=== PATIENT | female | born 1950 | race Two or more races ===

== ENCOUNTER 2020-05-26 18:03 | Inpatient (IN) | payer BC, OTHER ==
[~2020-05-26] VITALS: Ht 160 cm; Wt 90.7 kg
[2020-05-26 18:57] LABS: Basophils # (auto) 0 10 ^3/uL (0-0.2); Basophils % (auto) 0.1 % (0.0-2.0); Eosinophils # (auto) 0 10 ^3/uL (0-0.8); Hematocrit 42.1 % (36.0-46.0); Hemoglobin 14.6 g/dL (12.2-16.2); Lymphocytes # (auto) 0.3 10 ^3/uL (0.4-5.4); Lymphocytes % (auto) 3.5 % (10.0-50.0); Mean Corpuscular Hemoglobin 31.7 pg (28.0-32.0); Mean Corpuscular Hgb Conc. 34.5 g/dL (32.0-36.0); Mean Corpuscular Volume 91.8 fL (80.0-100.0); Monocytes # (auto) 0.6 10 ^3/uL (0-1.3); Monocytes % (auto) 6.2 % (0.0-12.0); Neutrophils # (auto) 8.2 10 ^3/uL (1.6-8.6); Neutrophils % (auto) 90.2 % (37.0-80.0); Nucleated Red Blood Cells % 0.1 %; Platelet Count (auto) 275 10^3/uL (140-450); Red Blood Cells 4.59 10^6/uL (4.0-5.20); White Blood Cell 9.1 10^3/uL (4.4-10.8)
[2020-05-26 19:09] LABS: Albumin 2.8 g/dL (3.4-5.0); BUN/Creatinine Ratio 15.8; Calcium 8.2 mg/dL (8.5-10.1)
[2020-05-26 19:14] LABS: Bilirubin, Total 0.5 mg/dL (0.2-1.0); Total Protein 7.8 g/dL (6.4-8.2)
[2020-05-26] MEDS ORDERED: ALBUTEROL SULF 2.5 MG/0.5ML(0.5%) NEB SOLN NEB ONE (19:15)
[2020-05-26] MEDS ORDERED: IPRATROPIUM BROM 0.5 MG/2.5ML INH SOL NEB ONE (19:15)
[2020-05-26 19:30] VITALS: BP 130/79
[2020-05-26] MEDS ORDERED: levoFLOXacin 750MG 150 ML IV ONE (20:00)
[2020-05-26] MEDS ORDERED: LORazepam 2MG/ML-1ML VIAL IV ONE (22:00)
[2020-05-26 22:40] VITALS: BP 124/73
[2020-05-26] MEDS ORDERED: MORPHINE SULF INJ 2 MG/ML SYRINGE 1ML IV PRN (22:45)
[2020-05-26] MEDS ORDERED: ACETAMINOPHEN 325 MG TAB PO PRN (22:45)
[2020-05-26] MEDS ORDERED: NITROGLYCERIN 0.4 MG SL TAB SL PRN (22:45)
[2020-05-26 23:03] LABS: Lactate Dehydrogenase 848 U/L (84-246); Magnesium 3.1 mg/dL (1.6-2.6)
[2020-05-26 23:15] LABS: CRP High Sensitivity > 19.0 mg/dL (< 0.3)
[2020-05-27] VITALS (7 sets, daily range): BP systolic 113–140; BP diastolic 65–77
[2020-05-27] MEDS: DexAMETHasone SOD PHOS 10MG/1ML VIAL INJ IV SCH ×2 (00:15→10:00)
[2020-05-27] MEDS ORDERED: ENOXAPARIN SOD 40 MG/0.4 ML SYRINGE SC SCH ×2 (03:00→10:00)
[2020-05-27] MEDS: ALBUTEROL SULF HFA 90MCG INH 200DOSE IN SCH ×3 (06:00→22:26)
[2020-05-27 06:14] LABS: Basophils # (auto) 0 10 ^3/uL (0-0.2); Eosinophils # (auto) 0 10 ^3/uL (0-0.8); Hematocrit 40.2 % (36.0-46.0); Hemoglobin 13.8 g/dL (12.2-16.2); Lymphocytes # (auto) 0.3 10 ^3/uL (0.4-5.4); Lymphocytes % (auto) 3.7 % (10.0-50.0); Mean Corpuscular Hemoglobin 31.5 pg (28.0-32.0); Mean Corpuscular Hgb Conc. 34.4 g/dL (32.0-36.0); Mean Corpuscular Volume 91.8 fL (80.0-100.0); Monocytes # (auto) 0.4 10 ^3/uL (0-1.3); Monocytes % (auto) 4.1 % (0.0-12.0); Neutrophils # (auto) 8.3 10 ^3/uL (1.6-8.6); Neutrophils % (auto) 92.2 % (37.0-80.0); Platelet Count (auto) 273 10^3/uL (140-450); Red Blood Cells 4.38 10^6/uL (4.0-5.20); Red Cell Distribution Width 13.4 % (11.8-14.3)
[2020-05-27 06:23] LABS: Albumin 2.6 g/dL (3.4-5.0); BUN/Creatinine Ratio 21.7; Calcium 8.5 mg/dL (8.5-10.1); Potassium 4.5 mmol/L (3.5-5.1)
[2020-05-27 06:28] LABS: Bilirubin, Total 0.4 mg/dL (0.2-1.0); Total Protein 7.5 g/dL (6.4-8.2)
[2020-05-27] MEDS: ASCORBIC ACID 1,000 MG TAB PO SCH (10:00)
[2020-05-27] MEDS: FAMOTIDINE 20 MG TAB PO SCH (10:00)
[2020-05-27] MEDS: CHOLECALCIFEROL (VITD3) 2,000 UNIT CAP PO SCH (10:00)
[2020-05-27] MEDS: ZINC SULFATE 220mg CAP or TAB PO SCH (10:00)
[2020-05-27] MEDS: DOXYCYCLINE 100MG/250ML 250 ML IV SCH (10:00)
[2020-05-27] MEDS ORDERED: ASPirin 81 mg TAB PO SCH (10:00)
[2020-05-27] MEDS: BUDESONIDE (INHALATION) 180 MCG IH IN SCH ×2 (11:05→22:26)
[2020-05-27] MEDS ORDERED: FUROSEMIDE 40 MG/4 ML VIAL IV ONE (12:15)
[2020-05-27] MEDS ORDERED: cefTRIAXone 1GM/50ML D5W 50 ML IV ONE (12:15)
[2020-05-27] MEDS ORDERED: REMDESIVIR PER PHARMACY IV SCH (12:45)
--- NOTE | 2020-05-27 13:00 | NUR ---
RT NOTE: FIO2 DECREASED TO 70% FROM 100% PER DR. VOGEL. RN LAURE AWARE. POX 91%. WILL CONTINUE TO MONITOR.
--- NOTE | 2020-05-27 16:02 | NUR ---
RT NOTE: FIO2 INCREASED TO 90% DUE TO PT. POX 86%. RN LAURE KO. PT. POX ON 90% FIO2 IS 90%.
[2020-05-27] MEDS ORDERED: REMDESIVIR 200 MG in NS 210ml LOADING DOSE ADULT IV ONE (17:00)
[2020-05-28] MEDS: ATORVASTATIN 20 MG TAB PO SCH ×2 (00:22→22:00)
[2020-05-28] MEDS: DOXYCYCLINE 100MG/250ML 250 ML IV SCH ×3 (00:22→22:00)
[2020-05-28] MEDS: FAMOTIDINE 20 MG TAB PO SCH ×3 (00:22→22:00)
[2020-05-28] MEDS: ENOXAPARIN SOD 80 MG/0.8ML SYRINGE SC SCH ×3 (00:22→22:00)
[2020-05-28] MEDS: MORPHINE SULF INJ 2 MG/ML SYRINGE 1ML IV PRN ×3 (00:23→19:56)
[2020-05-28] MEDS: ONDANSETRON HCL 4 MG/2 ML VIAL IV PRN ×2 (00:23→18:36)
[2020-05-28 01:27] VITALS: BP 131/69
[2020-05-28 06:02] LABS: Basophils # (auto) 0 10 ^3/uL (0-0.2); Basophils % (auto) 0.1 % (0.0-2.0); Eosinophils # (auto) 0 10 ^3/uL (0-0.8); Hematocrit 38.9 % (36.0-46.0); Hemoglobin 13.3 g/dL (12.2-16.2); Lymphocytes # (auto) 0.4 10 ^3/uL (0.4-5.4); Mean Corpuscular Hemoglobin 31.4 pg (28.0-32.0); Mean Corpuscular Hgb Conc. 34.2 g/dL (32.0-36.0); Mean Corpuscular Volume 91.9 fL (80.0-100.0); Monocytes # (auto) 0.9 10 ^3/uL (0-1.3); Monocytes % (auto) 6.7 % (0.0-12.0); Neutrophils # (auto) 11.6 10 ^3/uL (1.6-8.6); Neutrophils % (auto) 90.2 % (37.0-80.0); Nucleated Red Blood Cells % 0.2 %; Platelet Count (auto) 334 10^3/uL (140-450); Red Blood Cells 4.23 10^6/uL (4.0-5.20); Red Cell Distribution Width 13.1 % (11.8-14.3); White Blood Cell 12.9 10^3/uL (4.4-10.8)
[2020-05-28 06:15] LABS: Potassium 4.2 mmol/L (3.5-5.1)
[2020-05-28 06:25] LABS: Albumin 2.4 g/dL (3.4-5.0); BUN/Creatinine Ratio 32.6; Bilirubin, Total 0.5 mg/dL (0.2-1.0); Calcium 8.4 mg/dL (8.5-10.1); Total Protein 7.2 g/dL (6.4-8.2)
[2020-05-28 07:46] VITALS: BP 124/77
[2020-05-28] MEDS: BUDESONIDE (INHALATION) 180 MCG IH IN SCH ×2 (07:46→19:07)
[2020-05-28] MEDS: ALBUTEROL SULF HFA 90MCG INH 200DOSE IN SCH (07:46)
[2020-05-28] MEDS: cefTRIAXone 1GM/50ML D5W 50 ML IV SCH (08:58)
[2020-05-28 10:00] VITALS: BP 135/60
[2020-05-28] MEDS ORDERED: ALBUTEROL SULF HFA 90MCG INH 200DOSE IN PRN (10:45)
[2020-05-28] MEDS: DexAMETHasone SOD PHOS 10MG/1ML VIAL INJ IV SCH (11:42)
[2020-05-28] MEDS: ASPirin 81 mg TAB PO SCH (11:46)
[2020-05-28] MEDS: FUROSEMIDE 40 MG/4 ML VIAL IV SCH (11:46)
[2020-05-28] MEDS: CHOLECALCIFEROL (VITD3) 2,000 UNIT CAP PO SCH (11:47)
[2020-05-28] MEDS: ZINC SULFATE 220mg CAP or TAB PO SCH (11:47)
[2020-05-28] MEDS: ASCORBIC ACID 1,000 MG TAB PO SCH (11:47)
[2020-05-28 12:30] VITALS: BP 139/74
[2020-05-28] MEDS: REMDESIVIR 100 MG in SODIUM CHL 0.9% 250 ML IV SCH (17:11)
[2020-05-28 19:07] VITALS: BP 130/75
[2020-05-28 22:27] VITALS: BP 139/67
[2020-05-29 02:42] VITALS: BP 128/56
[2020-05-29 06:25] VITALS: BP 118/59
[2020-05-29] MEDS: DexAMETHasone SOD PHOS 10MG/1ML VIAL INJ IV SCH (10:00)
[2020-05-29] MEDS: BUDESONIDE (INHALATION) 180 MCG IH IN SCH ×2 (10:00→19:35)
[2020-05-29] MEDS: cefTRIAXone 1GM/50ML D5W 50 ML IV SCH (10:09)
[2020-05-29 10:44] VITALS: BP 131/68
[2020-05-29 11:03] LABS: Albumin 2.3 g/dL (3.4-5.0); Calcium 8.4 mg/dL (8.5-10.1); Potassium 4.1 mmol/L (3.5-5.1)
[2020-05-29 11:06] LABS: Bilirubin, Total 0.5 mg/dL (0.2-1.0)
[2020-05-29] MEDS: FUROSEMIDE 40 MG/4 ML VIAL IV SCH (11:13)
[2020-05-29] MEDS: DOXYCYCLINE 100MG/250ML 250 ML IV SCH ×2 (11:13→22:11)
[2020-05-29] MEDS: ASCORBIC ACID 1,000 MG TAB PO SCH (11:14)
[2020-05-29] MEDS: FAMOTIDINE 20 MG TAB PO SCH ×2 (11:14→22:12)
[2020-05-29] MEDS: ASPirin 81 mg TAB PO SCH (11:14)
[2020-05-29] MEDS: ZINC SULFATE 220mg CAP or TAB PO SCH (11:14)
[2020-05-29] MEDS: CHOLECALCIFEROL (VITD3) 2,000 UNIT CAP PO SCH (11:15)
[2020-05-29] MEDS: ENOXAPARIN SOD 80 MG/0.8ML SYRINGE SC SCH ×2 (11:15→22:12)
[2020-05-29] MEDS: REMDESIVIR 100 MG in SODIUM CHL 0.9% 250 ML IV SCH (17:00)
[2020-05-29] MEDS ORDERED: SORE THROAT SPRAY 6OZ BOTTLE MT PRN (17:45)
[2020-05-29 18:36] VITALS: BP 138/73
[2020-05-29 21:58] VITALS: BP 128/67
[2020-05-29] MEDS: ATORVASTATIN 20 MG TAB PO SCH (22:11)
[2020-05-30 02:36] VITALS: BP 142/70
[2020-05-30] MEDS: LORazepam 2MG/ML-1ML VIAL IV PRN ×3 (02:43→22:58)
[2020-05-30 06:30] VITALS: BP 141/69
[2020-05-30] MEDS: BUDESONIDE (INHALATION) 180 MCG IH IN SCH (06:30)
[2020-05-30 06:41] LABS: Basophils # (auto) 0 10 ^3/uL (0-0.2); Eosinophils # (auto) 0 10 ^3/uL (0-0.8); Hematocrit 40.8 % (36.0-46.0); Hemoglobin 13.9 g/dL (12.2-16.2); Lymphocytes # (auto) 0.3 10 ^3/uL (0.4-5.4); Mean Corpuscular Hemoglobin 31.1 pg (28.0-32.0); Mean Corpuscular Volume 91.5 fL (80.0-100.0); Monocytes # (auto) 0.5 10 ^3/uL (0-1.3); Neutrophils # (auto) 10.8 10 ^3/uL (1.6-8.6); Nucleated Red Blood Cells % 0.2 %; Platelet Count (auto) 432 10^3/uL (140-450); Red Blood Cells 4.46 10^6/uL (4.0-5.20); Red Cell Distribution Width 13.3 % (11.8-14.3); White Blood Cell 11.6 10^3/uL (4.4-10.8)
[2020-05-30 07:01] LABS: Potassium 3.7 mmol/L (3.5-5.1)
[2020-05-30 07:08] LABS: Albumin 2.4 g/dL (3.4-5.0); Bilirubin, Total 0.7 mg/dL (0.2-1.0); Calcium 8.2 mg/dL (8.5-10.1)
[2020-05-30 09:52] VITALS: BP 176/116
[2020-05-30] MEDS ORDERED: LORazepam 2MG/ML-1ML VIAL IV ONE ×2 (10:00→11:00)
[2020-05-30] MEDS: FUROSEMIDE 40 MG/4 ML VIAL IV SCH (10:36)
[2020-05-30] MEDS: DexAMETHasone SOD PHOS 10MG/1ML VIAL INJ IV SCH (10:36)
[2020-05-30] MEDS: ZINC SULFATE 220mg CAP or TAB PO SCH (10:37)
[2020-05-30] MEDS: ENOXAPARIN SOD 80 MG/0.8ML SYRINGE SC SCH ×2 (10:37→22:21)
[2020-05-30] MEDS: ASPirin 81 mg TAB PO SCH (10:37)
[2020-05-30] MEDS: CHOLECALCIFEROL (VITD3) 2,000 UNIT CAP PO SCH (10:38)
[2020-05-30] MEDS: ASCORBIC ACID 1,000 MG TAB PO SCH (10:38)
[2020-05-30] MEDS: FAMOTIDINE 20 MG TAB PO SCH ×2 (10:38→22:00)
[2020-05-30] MEDS: levoFLOXacin 500 MG TAB PO SCH (10:54)
[2020-05-30] MEDS: ONDANSETRON HCL 4 MG/2 ML VIAL IV PRN (12:14)
[2020-05-30] MEDS: MORPHINE SULF INJ 2 MG/ML SYRINGE 1ML IV PRN (12:14)
[2020-05-30] MEDS ORDERED: ACETAMINOPHEN 650 MG RECT SUPP PR ONE (12:30)
[2020-05-30 14:00] VITALS: BP 104/49
[2020-05-30] MEDS: REMDESIVIR 100 MG in SODIUM CHL 0.9% 250 ML IV SCH (17:15)
[2020-05-30 18:30] VITALS: BP 111/62
[2020-05-30] MEDS: ATORVASTATIN 20 MG TAB PO SCH (22:00)
[2020-05-30 22:30] VITALS: BP 114/66
[2020-05-30] MEDS: ALBUTEROL SULF 2.5 MG/0.5ML(0.5%) NEB SOLN NEB SCH (22:30)
[2020-05-30] MEDS: BUDESONIDE (INHALATION) 0.5 MG/2 ML NEB NEB SCH (22:30)
[2020-05-31 02:10] VITALS: BP 118/68
[2020-05-31] MEDS: ONDANSETRON HCL 4 MG/2 ML VIAL IV PRN ×2 (03:18→18:27)
[2020-05-31] MEDS: MORPHINE SULF INJ 2 MG/ML SYRINGE 1ML IV PRN ×2 (03:18→18:27)
[2020-05-31 06:15] VITALS: BP 138/75
[2020-05-31] MEDS: ALBUTEROL SULF 2.5 MG/0.5ML(0.5%) NEB SOLN NEB SCH ×3 (06:15→20:45)
[2020-05-31] MEDS: BUDESONIDE (INHALATION) 0.5 MG/2 ML NEB NEB SCH ×2 (06:15→20:45)
[2020-05-31 08:52] LABS: Basophils # (auto) 0 10 ^3/uL (0-0.2); Eosinophils # (auto) 0 10 ^3/uL (0-0.8); Eosinophils % (auto) 0.2 % (0.0-7.0); Hemoglobin 13.8 g/dL (12.2-16.2); Lymphocytes # (auto) 0.3 10 ^3/uL (0.4-5.4); Red Cell Distribution Width 13.3 % (11.8-14.3); White Blood Cell 13.4 10^3/uL (4.4-10.8)
[2020-05-31 08:53] LABS: Basophils % (auto) 0.2 % (0.0-2.0); Hematocrit 42.1 % (36.0-46.0); Lymphocytes % (auto) 2.3 % (10.0-50.0); Mean Corpuscular Hemoglobin 30.6 pg (28.0-32.0); Mean Corpuscular Hgb Conc. 32.9 g/dL (32.0-36.0); Mean Corpuscular Volume 93.2 fL (80.0-100.0); Monocytes # (auto) 0.5 10 ^3/uL (0-1.3); Monocytes % (auto) 3.7 % (0.0-12.0); Neutrophils # (auto) 12.6 10 ^3/uL (1.6-8.6); Neutrophils % (auto) 93.6 % (37.0-80.0); Nucleated Red Blood Cells % 0.1 %; Platelet Count (auto) 481 10^3/uL (140-450); Red Blood Cells 4.52 10^6/uL (4.0-5.20)
[2020-05-31 09:08] LABS: Albumin 2.3 g/dL (3.4-5.0); Calcium 8.4 mg/dL (8.5-10.1); Potassium 3.7 mmol/L (3.5-5.1)
[2020-05-31 09:10] LABS: BUN/Creatinine Ratio 53.3
[2020-05-31 09:12] LABS: Bilirubin, Total 0.6 mg/dL (0.2-1.0); Total Protein 7.2 g/dL (6.4-8.2)
[2020-05-31] MEDS: DexAMETHasone SOD PHOS 10MG/1ML VIAL INJ IV SCH (09:48)
[2020-05-31] MEDS: ENOXAPARIN SOD 80 MG/0.8ML SYRINGE SC SCH ×2 (09:49→21:42)
[2020-05-31] MEDS: FUROSEMIDE 40 MG/4 ML VIAL IV SCH (09:49)
[2020-05-31 09:55] VITALS: BP 142/84
[2020-05-31] MEDS: FAMOTIDINE 20 MG TAB PO SCH ×2 (10:31→21:42)
[2020-05-31] MEDS: ASPirin 81 mg TAB PO SCH (10:31)
[2020-05-31] MEDS: ASCORBIC ACID 1,000 MG TAB PO SCH (10:31)
[2020-05-31] MEDS: levoFLOXacin 500 MG TAB PO SCH (10:31)
[2020-05-31] MEDS: ZINC SULFATE 220mg CAP or TAB PO SCH (10:31)
[2020-05-31] MEDS: CHOLECALCIFEROL (VITD3) 2,000 UNIT CAP PO SCH (10:32)
[2020-05-31] MEDS: LORazepam 2MG/ML-1ML VIAL IV PRN ×2 (12:37→21:54)
[2020-05-31 14:00] VITALS: BP 109/57
[2020-05-31] MEDS ORDERED: IOHEXOL 350 MG/ML 100ML IJ ONE (16:02)
[2020-05-31] MEDS: REMDESIVIR 100 MG in SODIUM CHL 0.9% 250 ML IV SCH (16:54)
[2020-05-31 18:00] VITALS: BP 144/71
[2020-05-31] MEDS: ATORVASTATIN 20 MG TAB PO SCH (21:42)
[2020-05-31 23:00] VITALS: BP 138/81
[2020-06-01 02:30] VITALS: BP 145/80
[2020-06-01] MEDS: LORazepam 2MG/ML-1ML VIAL IV PRN ×3 (04:52→19:47)
[2020-06-01 06:30] VITALS: BP 143/79
[2020-06-01] MEDS: BUDESONIDE (INHALATION) 0.5 MG/2 ML NEB NEB SCH ×2 (06:30→19:24)
[2020-06-01] MEDS: ALBUTEROL SULF 2.5 MG/0.5ML(0.5%) NEB SOLN NEB SCH ×3 (06:30→19:24)
[2020-06-01] MEDS ORDERED: LORazepam 2MG/ML-1ML VIAL IV ONE (07:45)
[2020-06-01] MEDS ORDERED: MORPHINE SULF INJ 2 MG/ML SYRINGE 1ML ONE (09:00)
[2020-06-01] MEDS: MORPHINE SULF INJ 2 MG/ML SYRINGE 1ML IV PRN ×3 (09:28→22:15)
[2020-06-01] MEDS: FUROSEMIDE 40 MG/4 ML VIAL IV SCH (09:33)
[2020-06-01] MEDS: DexAMETHasone SOD PHOS 10MG/1ML VIAL INJ IV SCH (09:33)
[2020-06-01] MEDS: ENOXAPARIN SOD 80 MG/0.8ML SYRINGE SC SCH ×2 (09:34→22:16)
[2020-06-01] MEDS: levoFLOXacin 500 MG TAB PO SCH (10:00)
[2020-06-01] MEDS: ASPirin 81 mg TAB PO SCH (10:00)
[2020-06-01] MEDS: CHOLECALCIFEROL (VITD3) 2,000 UNIT CAP PO SCH (10:00)
[2020-06-01] MEDS: ASCORBIC ACID 1,000 MG TAB PO SCH (10:00)
[2020-06-01] MEDS: ZINC SULFATE 220mg CAP or TAB PO SCH (10:00)
[2020-06-01] MEDS: FAMOTIDINE 20 MG TAB PO SCH ×2 (10:00→20:15)
[2020-06-01 10:10] VITALS: BP 141/77
[2020-06-01 14:00] VITALS: BP 133/71
[2020-06-01 19:24] VITALS: BP 151/84
[2020-06-01] MEDS: ATORVASTATIN 20 MG TAB PO SCH (20:15)
[2020-06-01] MEDS: ONDANSETRON HCL 4 MG/2 ML VIAL IV PRN (22:16)
[2020-06-01 22:38] VITALS: BP 119/67
[2020-06-02] VITALS (9 sets, daily range): BP systolic 132–150; BP diastolic 67–89
[2020-06-02] MEDS: MORPHINE SULF INJ 2 MG/ML SYRINGE 1ML IV PRN ×2 (02:27→20:15)
[2020-06-02] MEDS: ONDANSETRON HCL 4 MG/2 ML VIAL IV PRN ×2 (02:27→20:15)
[2020-06-02] MEDS: LORazepam 2MG/ML-1ML VIAL IV PRN (02:58)
[2020-06-02] MEDS: BUDESONIDE (INHALATION) 0.5 MG/2 ML NEB NEB SCH ×2 (06:07→22:23)
[2020-06-02] MEDS: ALBUTEROL SULF 2.5 MG/0.5ML(0.5%) NEB SOLN NEB SCH ×3 (06:07→22:23)
[2020-06-02 06:55] LABS: Basophils # (auto) 0 10 ^3/uL (0-0.2); Basophils % (auto) 0.1 % (0.0-2.0); Eosinophils # (auto) 0 10 ^3/uL (0-0.8)
[2020-06-02 06:58] LABS: Hemoglobin 15.4 g/dL (12.2-16.2); Lymphocytes # (auto) 0.4 10 ^3/uL (0.4-5.4); Lymphocytes % (auto) 3.1 % (10.0-50.0); Mean Corpuscular Hemoglobin 31.4 pg (28.0-32.0); Mean Corpuscular Hgb Conc. 33.6 g/dL (32.0-36.0); Mean Corpuscular Volume 93.6 fL (80.0-100.0); Monocytes % (auto) 8.1 % (0.0-12.0); Neutrophils # (auto) 10.6 10 ^3/uL (1.6-8.6); Neutrophils % (auto) 88.7 % (37.0-80.0); Nucleated Red Blood Cells % 0.3 %; Red Blood Cells 4.92 10^6/uL (4.0-5.20); Red Cell Distribution Width 13.3 % (11.8-14.3); White Blood Cell 11.9 10^3/uL (4.4-10.8)
[2020-06-02 07:05] LABS: BUN/Creatinine Ratio 73.3; Potassium 3.3 mmol/L (3.5-5.1)
[2020-06-02 07:16] LABS: Platelet Count (auto) 578 10^3/uL (140-450)
[2020-06-02] MEDS: ASPirin 81 mg TAB PO SCH (10:00)
[2020-06-02] MEDS: ASCORBIC ACID 1,000 MG TAB PO SCH (10:00)
[2020-06-02] MEDS: levoFLOXacin 500 MG TAB PO SCH (10:00)
[2020-06-02] MEDS: FAMOTIDINE 20 MG TAB PO SCH ×2 (10:00→22:00)
[2020-06-02] MEDS: CHOLECALCIFEROL (VITD3) 2,000 UNIT CAP PO SCH (10:00)
[2020-06-02] MEDS: ZINC SULFATE 220mg CAP or TAB PO SCH (10:00)
[2020-06-02] MEDS: DexAMETHasone SOD PHOS 10MG/1ML VIAL INJ IV SCH (10:14)
[2020-06-02] MEDS: ENOXAPARIN SOD 80 MG/0.8ML SYRINGE SC SCH ×2 (10:14→21:05)
[2020-06-02] MEDS: FUROSEMIDE 40 MG/4 ML VIAL IV SCH (10:14)
[2020-06-02] MEDS ORDERED: SOD CHL 0.45% 1,000 ML IV SCH (21:45)
[2020-06-02] MEDS: ATORVASTATIN 20 MG TAB PO SCH (22:00)
[2020-06-03] MEDS: ONDANSETRON HCL 4 MG/2 ML VIAL IV PRN ×2 (00:45→16:43)
[2020-06-03] MEDS: MORPHINE SULF INJ 2 MG/ML SYRINGE 1ML IV PRN ×4 (00:45→22:36)
[2020-06-03 02:24] VITALS: BP 119/74
[2020-06-03 06:19] LABS: Basophils # (auto) 0 10 ^3/uL (0-0.2); Eosinophils # (auto) 0 10 ^3/uL (0-0.8); Eosinophils % (auto) 0.1 % (0.0-7.0); Hemoglobin 15.4 g/dL (12.2-16.2); Lymphocytes # (auto) 0.6 10 ^3/uL (0.4-5.4); Mean Corpuscular Hemoglobin 30.6 pg (28.0-32.0); Monocytes # (auto) 1.4 10 ^3/uL (0-1.3); Monocytes % (auto) 10.5 % (0.0-12.0); Red Blood Cells 5.05 10^6/uL (4.0-5.20); Red Cell Distribution Width 13.5 % (11.8-14.3)
[2020-06-03 06:20] VITALS: BP 166/90
[2020-06-03 06:20] LABS: Basophils % (auto) 0.3 % (0.0-2.0); Hematocrit 47.8 % (36.0-46.0); Lymphocytes % (auto) 4.3 % (10.0-50.0); Mean Corpuscular Hgb Conc. 32.3 g/dL (32.0-36.0); Mean Corpuscular Volume 94.8 fL (80.0-100.0); Neutrophils % (auto) 84.8 % (37.0-80.0); Nucleated Red Blood Cells % 0.1 %; Platelet Count (auto) 521 10^3/uL (140-450)
[2020-06-03] MEDS: ALBUTEROL SULF 2.5 MG/0.5ML(0.5%) NEB SOLN NEB SCH ×3 (06:20→22:08)
[2020-06-03] MEDS: BUDESONIDE (INHALATION) 0.5 MG/2 ML NEB NEB SCH ×2 (06:20→22:08)
[2020-06-03 06:41] LABS: BUN/Creatinine Ratio 74.6; Calcium 8.5 mg/dL (8.5-10.1); Potassium 3.1 mmol/L (3.5-5.1)
[2020-06-03] MEDS: DexAMETHasone SOD PHOS 10MG/1ML VIAL INJ IV SCH (09:07)
[2020-06-03] MEDS: ASPirin 81 mg TAB PO SCH (09:08)
[2020-06-03] MEDS: FUROSEMIDE 40 MG/4 ML VIAL IV SCH (09:08)
[2020-06-03] MEDS: FAMOTIDINE 20 MG TAB PO SCH ×2 (09:09→21:39)
[2020-06-03] MEDS: levoFLOXacin 500 MG TAB PO SCH (09:09)
[2020-06-03] MEDS: ZINC SULFATE 220mg CAP or TAB PO SCH (09:09)
[2020-06-03] MEDS: CHOLECALCIFEROL (VITD3) 2,000 UNIT CAP PO SCH (09:09)
[2020-06-03] MEDS: ASCORBIC ACID 1,000 MG TAB PO SCH (09:09)
[2020-06-03] MEDS: ENOXAPARIN SOD 80 MG/0.8ML SYRINGE SC SCH ×2 (09:13→21:34)
[2020-06-03 09:53] VITALS: BP 155/85
[2020-06-03] MEDS: POTASSIUM CHL 20MEQ/100ML 100 ML IV SCH ×2 (10:45→12:45)
[2020-06-03] MEDS: D5W 5% 1,000 ML IV SCH ×2 (10:45→20:45)
[2020-06-03 15:05] VITALS: BP 151/81
--- NOTE | 2020-06-03 15:05 | NUR ---
Respiratory note: MED NEB TX HELD AT THIS TIME DUE TO INCREASED HR 127.
[2020-06-03] MEDS: ATORVASTATIN 20 MG TAB PO SCH (21:39)
[2020-06-03 22:09] VITALS: BP 159/116
[2020-06-04 01:48] VITALS: BP 162/77
[2020-06-04] MEDS: D5W 5% 1,000 ML IV SCH ×4 (05:38→20:40)
[2020-06-04 06:18] VITALS: BP 156/87
[2020-06-04] MEDS: BUDESONIDE (INHALATION) 0.5 MG/2 ML NEB NEB SCH ×2 (06:18→22:25)
[2020-06-04] MEDS: ALBUTEROL SULF 2.5 MG/0.5ML(0.5%) NEB SOLN NEB SCH ×3 (06:18→22:25)
--- NOTE | 2020-06-04 06:18 | NUR ---
Respiratory note: TITRATED FIO2 TO 90%
[2020-06-04] MEDS: MORPHINE SULF INJ 2 MG/ML SYRINGE 1ML IV PRN ×2 (08:56→21:30)
[2020-06-04 10:14] VITALS: BP 146/84
[2020-06-04] MEDS: DexAMETHasone SOD PHOS 10MG/1ML VIAL INJ IV SCH (10:20)
[2020-06-04] MEDS: ASPirin 81 mg TAB PO SCH (10:20)
[2020-06-04] MEDS: FAMOTIDINE 20 MG TAB PO SCH ×2 (10:20→22:00)
[2020-06-04] MEDS: ASCORBIC ACID 1,000 MG TAB PO SCH (10:20)
[2020-06-04] MEDS: ENOXAPARIN SOD 80 MG/0.8ML SYRINGE SC SCH (10:20)
[2020-06-04] MEDS: levoFLOXacin 500 MG TAB PO SCH (10:20)
[2020-06-04] MEDS: CHOLECALCIFEROL (VITD3) 2,000 UNIT CAP PO SCH (10:20)
[2020-06-04] MEDS: ZINC SULFATE 220mg CAP or TAB PO SCH (10:20)
--- NOTE | 2020-06-04 11:40 | NUR ---
Respiratory note: TITRATED FIO2 TO 80% POST ABG
[2020-06-04] MEDS ORDERED: ACETAMINOPHEN 650 MG RECT SUPP PR ONE (12:13)
[2020-06-04 12:46] LABS: Basophils # (auto) 0.1 10 ^3/uL (0-0.2); Basophils % (auto) 0.3 % (0.0-2.0); Eosinophils # (auto) 0 10 ^3/uL (0-0.8); Eosinophils % (auto) 0.2 % (0.0-7.0); Hematocrit 47.4 % (36.0-46.0); Hemoglobin 15.7 g/dL (12.2-16.2); Lymphocytes # (auto) 0.4 10 ^3/uL (0.4-5.4); Lymphocytes % (auto) 2.3 % (10.0-50.0); Mean Corpuscular Hemoglobin 31.3 pg (28.0-32.0); Mean Corpuscular Hgb Conc. 33.1 g/dL (32.0-36.0); Mean Corpuscular Volume 94.7 fL (80.0-100.0); Monocytes # (auto) 1.1 10 ^3/uL (0-1.3); Neutrophils # (auto) 14.6 10 ^3/uL (1.6-8.6); Neutrophils % (auto) 90.2 % (37.0-80.0); Nucleated Red Blood Cells % 0.1 %; Platelet Count (auto) 411 10^3/uL (140-450); Red Cell Distribution Width 13.1 % (11.8-14.3); White Blood Cell 16.1 10^3/uL (4.4-10.8)
[2020-06-04 13:19] LABS: BUN/Creatinine Ratio 53.7; Calcium 8.4 mg/dL (8.5-10.1); Potassium 3.4 mmol/L (3.5-5.1)
[2020-06-04 14:11] VITALS: BP 138/72
--- NOTE | 2020-06-04 14:11 | NUR ---
Respiratory note: TITRATED FIO2 TO 75%
[2020-06-04 18:25] VITALS: BP 149/92
[2020-06-04] MEDS: MEROPENEM 1GM IVPB 100 ML IV SCH (20:37)
[2020-06-04] MEDS: ONDANSETRON HCL 4 MG/2 ML VIAL IV PRN (21:30)
[2020-06-04] MEDS: ATORVASTATIN 20 MG TAB PO SCH (22:00)
[2020-06-04 22:25] VITALS: BP 138/78
[2020-06-04] MEDS: LINEZOLID 600MG/300ML 300 ML IV SCH (22:36)
[2020-06-05] MEDS: MORPHINE SULF INJ 2 MG/ML SYRINGE 1ML IV PRN ×4 (01:48→19:12)
[2020-06-05 02:43] VITALS: BP 154/76
[2020-06-05] MEDS: MEROPENEM 1GM IVPB 100 ML IV SCH ×3 (03:15→19:15)
[2020-06-05] MEDS: D5W 5% 1,000 ML IV SCH ×5 (03:20→23:25)
[2020-06-05 05:47] VITALS: BP 155/78
[2020-06-05] MEDS: ALBUTEROL SULF 2.5 MG/0.5ML(0.5%) NEB SOLN NEB SCH ×3 (05:47→21:53)
[2020-06-05] MEDS: BUDESONIDE (INHALATION) 0.5 MG/2 ML NEB NEB SCH ×2 (05:48→21:53)
[2020-06-05 06:33] LABS: Basophils # (auto) 0 10 ^3/uL (0-0.2); Basophils % (auto) 0.1 % (0.0-2.0); Eosinophils # (auto) 0 10 ^3/uL (0-0.8); Hematocrit 46.4 % (36.0-46.0); Hemoglobin 14.8 g/dL (12.2-16.2); Lymphocytes # (auto) 0.4 10 ^3/uL (0.4-5.4); Lymphocytes % (auto) 3.7 % (10.0-50.0); Mean Corpuscular Hemoglobin 30.6 pg (28.0-32.0); Mean Corpuscular Hgb Conc. 31.8 g/dL (32.0-36.0); Mean Corpuscular Volume 96.1 fL (80.0-100.0); Monocytes # (auto) 1.1 10 ^3/uL (0-1.3); Monocytes % (auto) 9.3 % (0.0-12.0); Neutrophils # (auto) 10.4 10 ^3/uL (1.6-8.6); Neutrophils % (auto) 86.9 % (37.0-80.0); Nucleated Red Blood Cells % 0.1 %; Platelet Count (auto) 317 10^3/uL (140-450); Red Blood Cells 4.83 10^6/uL (4.0-5.20); Red Cell Distribution Width 13.7 % (11.8-14.3)
[2020-06-05 06:44] LABS: INR 1.28 (0.9-1.15)
[2020-06-05 06:45] LABS: Potassium 3.1 mmol/L (3.5-5.1)
[2020-06-05 06:54] LABS: BUN/Creatinine Ratio 53.3; Calcium 8.1 mg/dL (8.5-10.1)
[2020-06-05] MEDS: ASCORBIC ACID 1,000 MG TAB PO SCH (10:00)
[2020-06-05] MEDS: CHOLECALCIFEROL (VITD3) 2,000 UNIT CAP PO SCH (10:00)
[2020-06-05] MEDS: FAMOTIDINE 20 MG TAB PO SCH ×2 (10:00→22:00)
[2020-06-05] MEDS: ZINC SULFATE 220mg CAP or TAB PO SCH (10:00)
[2020-06-05 11:13] VITALS: BP 144/69
[2020-06-05] MEDS: LINEZOLID 600MG/300ML 300 ML IV SCH ×2 (11:30→22:00)
[2020-06-05] MEDS ORDERED: TPN PER PHARMACY 0 ML IV SCH (12:15)
[2020-06-05 14:30] VITALS: BP 148/64
[2020-06-05] MEDS: POTASSIUM CHL 20MEQ/100ML 100 ML IV SCH ×2 (14:30→17:25)
[2020-06-05] MEDS ORDERED: POTASSIUM CHL 20MEQ/100ML 100 ML IV ONE (17:24)
[2020-06-05 18:20] VITALS: BP 167/89
[2020-06-05] MEDS: AMINO ACID INFUSION IN D10W 1,000 ML IV NR (20:00)
[2020-06-05 21:20] VITALS: BP 148/78
[2020-06-05] MEDS: ATORVASTATIN 20 MG TAB PO SCH (22:00)
[2020-06-06] MEDS ORDERED: DEXTROSE (50%) 50ML SYRG IV SCH
[2020-06-06] MEDS: InsuLIN REG 1unit/0.01ml Soln (100units/ml) SC SCH ×4 (00:08→17:36)
[2020-06-06] MEDS: ACCU-CHEK COMFORT CURVE STRIP VI SCH ×4 (00:09→17:36)
[2020-06-06] MEDS: MEROPENEM 1GM IVPB 100 ML IV SCH ×3 (03:15→19:15)
[2020-06-06 03:28] VITALS: BP 153/64
[2020-06-06] MEDS: D5W 5% 1,000 ML IV SCH ×4 (05:54→20:00)
[2020-06-06] MEDS: ALBUTEROL SULF 2.5 MG/0.5ML(0.5%) NEB SOLN NEB SCH ×2 (06:00→19:01)
[2020-06-06 07:24] LABS: Potassium 3.4 mmol/L (3.5-5.1)
[2020-06-06 07:45] VITALS: BP 157/79
[2020-06-06 07:51] LABS: BUN/Creatinine Ratio 47.7; Bilirubin, Total 0.6 mg/dL (0.2-1.0); Calcium 7.8 mg/dL (8.5-10.1); Magnesium 2.9 mg/dL (1.6-2.6); Phosphorus 1.3 mg/dL (2.5-4.90); Pre Albumin 10.7 mg/dL (20.0-40.0); Total Protein 5.8 g/dL (6.4-8.2)
[2020-06-06] MEDS: ACETAMINOPHEN 650 MG RECT SUPP PR PRN (08:14)
[2020-06-06] MEDS: LINEZOLID 600MG/300ML 300 ML IV SCH ×2 (10:00→22:00)
[2020-06-06] MEDS: CHOLECALCIFEROL (VITD3) 2,000 UNIT CAP PO SCH (10:00)
[2020-06-06] MEDS: BUDESONIDE (INHALATION) 0.5 MG/2 ML NEB NEB SCH ×2 (10:00→19:01)
[2020-06-06] MEDS: FAMOTIDINE 20 MG TAB PO SCH ×2 (10:00→22:00)
[2020-06-06] MEDS: ASCORBIC ACID 1,000 MG TAB PO SCH (10:00)
[2020-06-06] MEDS: ZINC SULFATE 220mg CAP or TAB PO SCH (10:00)
[2020-06-06] MEDS ORDERED: POTASSIUM PHOSPHATE 26.4 MEQ in SODIUM CHL 0.9% 100 ML IV ONE (11:00)
--- NOTE | 2020-06-06 15:29 | NUR ---
Nutrition Assessment/Consult Notes Please refer to link for full assessment notes. Est Energy needs: 1018-0181 kcals (20-23 kcal/kgBW) Est Protein needs: 74-81 gms/day (1.0-1.1 gm/kgBW) Will continue to monitor and reassess prn. Addendum: 06/06/20 at [address] Amended: Links added.
[2020-06-06] MEDS ORDERED: ENOXAPARIN SOD 40 MG/0.4 ML SYRINGE SC ONE (18:15)
[2020-06-06 19:01] VITALS: BP 125/64
[2020-06-06] MEDS: AMINO ACID INFUSION IN D10W 1,000 ML IV NR (19:49)
[2020-06-06] MEDS ORDERED: PPN PER PHARMACY IV NR ×7 (20:00)
[2020-06-06] MEDS: ATORVASTATIN 20 MG TAB PO SCH (22:00)
[2020-06-07] MEDS: InsuLIN REG 1unit/0.01ml Soln (100units/ml) SC SCH ×5 (00:19→21:24)
[2020-06-07] MEDS: ACCU-CHEK COMFORT CURVE STRIP VI SCH ×5 (00:19→21:24)
[2020-06-07 01:55] VITALS: BP 123/57
[2020-06-07] MEDS: D5W 5% 1,000 ML IV SCH ×4 (02:40→21:18)
[2020-06-07] MEDS: MEROPENEM 1GM IVPB 100 ML IV SCH ×3 (03:15→17:00)
[2020-06-07] MEDS: ALBUTEROL SULF 2.5 MG/0.5ML(0.5%) NEB SOLN NEB SCH ×3 (06:15→23:09)
[2020-06-07] MEDS: BUDESONIDE (INHALATION) 0.5 MG/2 ML NEB NEB SCH ×2 (06:15→23:09)
[2020-06-07 07:13] LABS: Potassium 3.1 mmol/L (3.5-5.1)
[2020-06-07 07:28] LABS: Albumin 1.9 g/dL (3.4-5.0); BUN/Creatinine Ratio 65.6; Bilirubin, Total 0.5 mg/dL (0.2-1.0); Calcium 7.7 mg/dL (8.5-10.1); Magnesium 2.8 mg/dL (1.6-2.6); Phosphorus 1.8 mg/dL (2.5-4.90); Total Protein 5.5 g/dL (6.4-8.2)
[2020-06-07] MEDS ORDERED: POTASSIUM CHLORIDE 40 MEQ, LIDOCAINE 1% (LOCAL ANESTH.) 4 ML in SODIUM CHL 0.9% 250 ML IV ONE (07:45)
[2020-06-07] MEDS: LINEZOLID 600MG/300ML 300 ML IV SCH ×2 (09:25→21:18)
[2020-06-07] MEDS: FAMOTIDINE 20 MG TAB PO SCH ×2 (09:26→21:18)
[2020-06-07] MEDS: ZINC SULFATE 220mg CAP or TAB PO SCH (09:26)
[2020-06-07] MEDS: ASCORBIC ACID 1,000 MG TAB PO SCH (09:26)
[2020-06-07] MEDS: ENOXAPARIN SOD 40 MG/0.4 ML SYRINGE SC SCH (09:26)
[2020-06-07] MEDS: CHOLECALCIFEROL (VITD3) 2,000 UNIT CAP PO SCH (09:31)
[2020-06-07 10:45] VITALS: BP 128/62
[2020-06-07] MEDS ORDERED: POTASSIUM PHOSPHATE 22 MEQ in SODIUM CHL 0.9% 100 ML IV ONE (13:30)
[2020-06-07 13:48] VITALS: BP 136/66
--- NOTE | 2020-06-07 18:52 | NUR ---
PT WAS TAKEN OFF BIPAP AND PLACED ON 15L NRB. HR 91 RR 90 RR30. PT IS TOLERATING WELL WITH NO ACUTE DISTRESS NOTED. WILL CONTINUE TO MONITOR.
[2020-06-07] MEDS ORDERED: PPN PER PHARMACY IV NR ×8 (20:00)
[2020-06-07] MEDS: ATORVASTATIN 20 MG TAB PO SCH (21:18)
[2020-06-08] MEDS: MEROPENEM 1GM IVPB 100 ML IV SCH ×3 (03:01→20:19)
[2020-06-08] MEDS: InsuLIN REG 1unit/0.01ml Soln (100units/ml) SC SCH ×4 (06:00→23:47)
[2020-06-08] MEDS: ACCU-CHEK COMFORT CURVE STRIP VI SCH ×4 (06:00→23:48)
[2020-06-08] MEDS: D5W 5% 1,000 ML IV SCH ×4 (06:43→20:19)
[2020-06-08 06:46] VITALS: BP 151/71
[2020-06-08] MEDS: ALBUTEROL SULF 2.5 MG/0.5ML(0.5%) NEB SOLN NEB SCH ×3 (06:46→22:00)
[2020-06-08] MEDS: BUDESONIDE (INHALATION) 0.5 MG/2 ML NEB NEB SCH ×2 (06:46→22:00)
[2020-06-08 09:41] LABS: Basophils # (auto) 0 10 ^3/uL (0-0.2); Basophils % (auto) 0.2 % (0.0-2.0); Eosinophils # (auto) 0.2 10 ^3/uL (0-0.8); Eosinophils % (auto) 1.3 % (0.0-7.0); Hematocrit 33.5 % (36.0-46.0); Hemoglobin 11.2 g/dL (12.2-16.2); Lymphocytes # (auto) 0.5 10 ^3/uL (0.4-5.4); Lymphocytes % (auto) 3.6 % (10.0-50.0); Mean Corpuscular Hgb Conc. 33.3 g/dL (32.0-36.0); Mean Corpuscular Volume 93.4 fL (80.0-100.0); Monocytes # (auto) 0.5 10 ^3/uL (0-1.3); Monocytes % (auto) 3.7 % (0.0-12.0); Neutrophils # (auto) 12.3 10 ^3/uL (1.6-8.6); Neutrophils % (auto) 91.2 % (37.0-80.0); Nucleated Red Blood Cells % 0.1 %; Platelet Count (auto) 126 10^3/uL (140-450); Red Blood Cells 3.59 10^6/uL (4.0-5.20); Red Cell Distribution Width 13.9 % (11.8-14.3); White Blood Cell 13.5 10^3/uL (4.4-10.8)
[2020-06-08] MEDS: LINEZOLID 600MG/300ML 300 ML IV SCH ×2 (09:50→13:00)
[2020-06-08 10:01] LABS: Albumin 1.7 g/dL (3.4-5.0); Calcium 7.6 mg/dL (8.5-10.1); Magnesium 2.5 mg/dL (1.6-2.6)
[2020-06-08 10:05] LABS: BUN/Creatinine Ratio 46.2; Bilirubin, Total 0.6 mg/dL (0.2-1.0); Phosphorus 1.5 mg/dL (2.5-4.90); Total Protein 5.4 g/dL (6.4-8.2)
[2020-06-08] MEDS: ZINC SULFATE 220mg CAP or TAB PO SCH (10:19)
[2020-06-08] MEDS: FAMOTIDINE 20 MG TAB PO SCH ×2 (10:19→22:57)
[2020-06-08] MEDS: ENOXAPARIN SOD 40 MG/0.4 ML SYRINGE SC SCH (10:19)
[2020-06-08] MEDS: ASCORBIC ACID 1,000 MG TAB PO SCH (10:19)
[2020-06-08] MEDS: CHOLECALCIFEROL (VITD3) 2,000 UNIT CAP PO SCH (10:19)
[2020-06-08] MEDS ORDERED: POTASSIUM PHOSPHATE 44 MEQ in D5W 5% 250 ML IV ONE (14:00)
[2020-06-08 18:00] VITALS: BP 136/61
[2020-06-08] MEDS: LORazepam 2MG/ML-1ML VIAL IV PRN (19:44)
[2020-06-08] MEDS ORDERED: PPN PER PHARMACY IV NR ×9 (20:00)
[2020-06-08 22:05] VITALS: BP 138/62
[2020-06-08] MEDS: ATORVASTATIN 20 MG TAB PO SCH (22:57)
[2020-06-08] MEDS: POTASSIUM CHL 20MEQ/100ML 100 ML IV SCH (23:15)
[2020-06-09] MEDS: ACETAMINOPHEN 650 MG RECT SUPP PR PRN ×3 (00:37→20:30)
[2020-06-09] MEDS: MORPHINE SULF INJ 2 MG/ML SYRINGE 1ML IV PRN ×4 (00:48→20:23)
[2020-06-09] MEDS: POTASSIUM CHL 20MEQ/100ML 100 ML IV SCH ×2 (01:00→01:03)
[2020-06-09 02:15] VITALS: BP 151/60
[2020-06-09] MEDS: MEROPENEM 1GM IVPB 100 ML IV SCH ×3 (03:01→17:37)
[2020-06-09] MEDS: LINEZOLID 600MG/300ML 300 ML IV SCH ×2 (03:01→13:22)
[2020-06-09] MEDS: LORazepam 2MG/ML-1ML VIAL IV PRN ×2 (05:48→23:10)
[2020-06-09 06:00] VITALS: BP 139/57
[2020-06-09] MEDS: InsuLIN REG 1unit/0.01ml Soln (100units/ml) SC SCH ×3 (06:00→17:56)
[2020-06-09] MEDS: BUDESONIDE (INHALATION) 0.5 MG/2 ML NEB NEB SCH ×2 (06:11→20:03)
[2020-06-09] MEDS: ALBUTEROL SULF 2.5 MG/0.5ML(0.5%) NEB SOLN NEB SCH ×3 (06:11→20:03)
[2020-06-09 06:13] LABS: Basophils # (auto) 0.1 10 ^3/uL (0-0.2); Basophils % (auto) 0.5 % (0.0-2.0); Eosinophils # (auto) 0.2 10 ^3/uL (0-0.8); Eosinophils % (auto) 1.4 % (0.0-7.0); Hematocrit 36.9 % (36.0-46.0); Hemoglobin 12.3 g/dL (12.2-16.2); Lymphocytes # (auto) 0.5 10 ^3/uL (0.4-5.4); Lymphocytes % (auto) 3.6 % (10.0-50.0); Mean Corpuscular Hemoglobin 31.1 pg (28.0-32.0); Mean Corpuscular Hgb Conc. 33.4 g/dL (32.0-36.0); Mean Corpuscular Volume 93.1 fL (80.0-100.0); Monocytes # (auto) 0.6 10 ^3/uL (0-1.3); Monocytes % (auto) 4.6 % (0.0-12.0); Neutrophils # (auto) 11.7 10 ^3/uL (1.6-8.6); Neutrophils % (auto) 89.9 % (37.0-80.0); Nucleated Red Blood Cells % 0.1 %; Platelet Count (auto) 142 10^3/uL (140-450); Red Blood Cells 3.96 10^6/uL (4.0-5.20); Red Cell Distribution Width 13.6 % (11.8-14.3)
[2020-06-09] MEDS: ACCU-CHEK COMFORT CURVE STRIP VI SCH ×3 (06:13→17:18)
[2020-06-09] MEDS: D5W 5% 1,000 ML IV SCH ×2 (06:13→16:03)
[2020-06-09 06:19] LABS: Albumin 1.8 g/dL (3.4-5.0); Calcium 7.8 mg/dL (8.5-10.1); Magnesium 2.6 mg/dL (1.6-2.6); Potassium 3.6 mmol/L (3.5-5.1)
[2020-06-09 06:23] LABS: BUN/Creatinine Ratio 35.7; Bilirubin, Total 0.5 mg/dL (0.2-1.0); Total Protein 6.1 g/dL (6.4-8.2)
[2020-06-09] MEDS: FAMOTIDINE 20 MG TAB PO SCH ×2 (10:00→21:29)
[2020-06-09] MEDS: ZINC SULFATE 220mg CAP or TAB PO SCH (10:00)
[2020-06-09] MEDS: ASCORBIC ACID 1,000 MG TAB PO SCH (10:00)
[2020-06-09] MEDS: CHOLECALCIFEROL (VITD3) 2,000 UNIT CAP PO SCH (10:00)
[2020-06-09] MEDS: ENOXAPARIN SOD 40 MG/0.4 ML SYRINGE SC SCH (10:00)
[2020-06-09] MEDS ORDERED: POTASSIUM PHOSP 22MEQ(15MMOLE) in NS 100 ML IV ONE (11:00)
--- NOTE | 2020-06-09 12:54 | NUR ---
Nutrition Followup Notes Wt: 73.4 kg Pt continues to be in ER, little confused per records. pt is currently on cardiac diet with no PO recorded yet per RN doc along with PN support @ 64 ml/hr providing 956 kcals and 70 gm proteins 676 NCP Est Energy needs: 0767-1603 kcals (20-23 kcal/kgBW), Est Protein needs: 74-81 gms/day (1.0-1.1 gm/kgBW). Will continue to monitor and reassess prn. LABS: GLU 117 H ALB 1.8 L CA 7.8 L GI: Pt had 1 BM 06/07 per RN doc BS: No BS score. Refer to wound assessment report for further details PES: 1) Increased nutrient needs aeb pt is with no PO intake, scheduled to receive TPN r/t pt's poor appetite 2) Overweight aeb BMI of 28.7 kg/m2 r/t energy intake in excess of energy needs 3) Altered nutrition related lab values aeb hypernatremia, hypokalemia, elev RFT, hyperglycemia, hypoalbuminemia r/t current medical condition Comments: Will continue to monitor PO status, PN tolerance, skin status, pertinent labs and weight trends. Will f/u in 2-3 days Rec: 1) advance PN support to meet > 75% of needs if PO continues to be low. 2) continue assistance with meals. 3) Continue current plan of care
[2020-06-09 13:18] VITALS: BP 146/58
[2020-06-09] MEDS ORDERED: PPN PER PHARMACY IV NR ×8 (20:00)
[2020-06-09] MEDS ORDERED: D5W 5% 1,000 ML IV SCH (20:00)
[2020-06-09 20:03] VITALS: BP 197/72
[2020-06-09] MEDS: ONDANSETRON HCL 4 MG/2 ML VIAL IV PRN (20:23)
[2020-06-09] MEDS: ATORVASTATIN 20 MG TAB PO SCH (21:28)
[2020-06-09 22:20] VITALS: BP 137/54
[2020-06-10] VITALS (11 sets, daily range): BP systolic 81–122; BP diastolic 42–63
[2020-06-10] MEDS: LINEZOLID 600MG/300ML 300 ML IV SCH ×2 (01:00→16:00)
[2020-06-10] MEDS: MEROPENEM 1GM IVPB 100 ML IV SCH ×3 (03:15→19:15)
[2020-06-10] MEDS: ACCU-CHEK COMFORT CURVE STRIP VI SCH ×4 (06:00→18:35)
[2020-06-10] MEDS: InsuLIN REG 1unit/0.01ml Soln (100units/ml) SC SCH ×4 (06:00→18:38)
[2020-06-10] MEDS: BUDESONIDE (INHALATION) 0.5 MG/2 ML NEB NEB SCH ×2 (06:17→22:20)
[2020-06-10] MEDS: ALBUTEROL SULF 2.5 MG/0.5ML(0.5%) NEB SOLN NEB SCH ×2 (06:17→22:20)
[2020-06-10] MEDS ORDERED: SUCCINYLCHOLINE CHLORIDE 20 MG/ML 10ML VIAL IV ONE (07:27)
[2020-06-10] MEDS ORDERED: ETOMIDATE (2MG/ML) 20ML VIAL IV ONE (07:27)
[2020-06-10 07:37] LABS: Basophils # (auto) 0.1 10 ^3/uL (0-0.2); Basophils % (auto) 0.6 % (0.0-2.0); Eosinophils # (auto) 0.2 10 ^3/uL (0-0.8); Eosinophils % (auto) 2.4 % (0.0-7.0); Hematocrit 36.1 % (36.0-46.0); Hemoglobin 11.9 g/dL (12.2-16.2); Lymphocytes # (auto) 0.4 10 ^3/uL (0.4-5.4); Lymphocytes % (auto) 4.2 % (10.0-50.0); Mean Corpuscular Hemoglobin 31.1 pg (28.0-32.0); Mean Corpuscular Volume 94.2 fL (80.0-100.0); Monocytes # (auto) 0.5 10 ^3/uL (0-1.3); Monocytes % (auto) 5.7 % (0.0-12.0); Neutrophils # (auto) 7.8 10 ^3/uL (1.6-8.6); Neutrophils % (auto) 87.1 % (37.0-80.0); Platelet Count (auto) 152 10^3/uL (140-450); Red Blood Cells 3.84 10^6/uL (4.0-5.20); Red Cell Distribution Width 13.6 % (11.8-14.3); White Blood Cell 8.9 10^3/uL (4.4-10.8)
[2020-06-10] MEDS ORDERED: MIDAZOLAM DRIP 50 mg/50mL 50 ML IV ONE (08:07)
[2020-06-10 08:08] LABS: Potassium 3.4 mmol/L (3.5-5.1)
[2020-06-10 08:20] LABS: Albumin 1.6 g/dL (3.4-5.0); BUN/Creatinine Ratio 33.3; Bilirubin, Total 0.3 mg/dL (0.2-1.0); Calcium 7.8 mg/dL (8.5-10.1); Magnesium 2.6 mg/dL (1.6-2.6); Phosphorus 1.8 mg/dL (2.5-4.90)
[2020-06-10] MEDS: fentaNYL Drip 2500mCg/250mlNS 250 ML IV SCH (09:15)
[2020-06-10] MEDS ORDERED: SODIUM CHLORIDE 0.9% 500 ML IV ONE (09:15)
[2020-06-10] MEDS: ASCORBIC ACID 1,000 MG TAB PO SCH (10:00)
[2020-06-10] MEDS: ZINC SULFATE 220mg CAP or TAB PO SCH (10:00)
[2020-06-10] MEDS: FAMOTIDINE 20 MG TAB PO SCH ×2 (10:00→22:00)
[2020-06-10] MEDS: CHOLECALCIFEROL (VITD3) 2,000 UNIT CAP PO SCH (10:00)
[2020-06-10] MEDS: NOREPINEPHRINE 8 MG/250ML KIT 250 ML IV SCH (10:10)
[2020-06-10] MEDS ORDERED: POTASSIUM PHOSPHATE 26.4 MEQ in SODIUM CHL 0.9% 100 ML IV ONE (11:30)
[2020-06-10] MEDS ORDERED: SODIUM CHLORIDE 0.9% 1,000 ML IV SCH (12:15)
[2020-06-10] MEDS: ACETAMINOPHEN 650 MG RECT SUPP PR PRN ×2 (12:43→18:48)
[2020-06-10] MEDS: ENOXAPARIN SOD 40 MG/0.4 ML SYRINGE SC SCH (13:00)
[2020-06-10] MEDS: ATRACURIUM BESYLATE 1,000 MG in D5W 5% 150 ML IV SCH (15:30)
[2020-06-10 17:45] LABS: INR 1.16 (0.9-1.15); Partial Thromboplastin Time 29.1 sec (23.0-31.2)
[2020-06-10] MEDS: MIDAZOLAM DRIP 50 mg/50mL 50 ML IV SCH ×2 (18:40→23:43)
[2020-06-10] MEDS ORDERED: PPN PER PHARMACY IV NR ×9 (20:00)
--- NOTE | 2020-06-10 21:24 | NUR ---
REPORT RECEIVED REPORT FROM NURSE NGUYỄN NEW ADMISSION FOR COVID PNA WHO IS INTUBATED TODAY. AWAITING PATIENT ARRIVAL TO UNIT 266
[2020-06-10] MEDS: ATORVASTATIN 20 MG TAB PO SCH (22:00)
[2020-06-11] VITALS (96 sets, daily range): BP systolic 96–148; BP diastolic 42–64
--- NOTE | 2020-06-11 00:15 | NUR ---
FAMILY UPDATED PATIENT SPOUSE TERRY CALLED, PASSWORD VERIFIED. INFORMED HIM OF PATIENT STATUS AND PLAN OF CARE AND THAT PATIENT IS STABLE. SPOUSE STATES THAT HE WOULD LIKE TO VISIT PATIENT AT BEDSIDE INFORMED HIM THAT I WOULD NEED TO ASK PERMISSION FROM GUT SNATCHER AND IF NOT THEY WOULD NEED TO SPEAK TO THE TAMPER OPERATOR FOR PERMISSION DUE TO COVID PATIENT VISITATION RESTRICTIONS. PATIENT DEBRA PRITCHARD CAME ON THE PHONE . STATES HE DROVE FROM [facility] AND CAME TO SEE PATIENT BECAUSE THEY WERE INFORMED PATIENT WAS NOT DOING WELL. INFORMED DEBRA PRITCHARD THAT PATIENT IS STABLE ON VENTILATOR GETTING APPROPRIATE MEDICATION AND IS COMFORTABLE IN BED. INFORMED HIM ALSO ABOUT VISITION POLICY DURING COVID AND THAT THEY APPROVAL FROM GUT SNATCHER OR FROM TAMPER OPERATOR IN THE AM.
--- NOTE | 2020-06-11 00:16 | NUR ---
[facility]AND[facility] OF PT CALLED LOOKING FOR SALES TEACHER FRANKLIN FOR PERMISSION TO SEE LOVED ONE IN 266. SPOKE WITH FRANKLIN HE WAS IN A CODE BLUE AND WOULD NOT BE ABLE TO SPEAK WITH FAMILY MEMBER. EXPLAINED TO FRANKLIN THE SITUATION, HE SAID GRANDDEBRA COULD NOT COME IN TONIGHT BUT THAT THEY COULD BRING IT UP WITH MAMMALOGIST TOMORROW AND THAT HE IS TOO BUSY TO SPEAK ON PHONE RIGHT NOW AND PROBABLY WOULD NOT BE ABLE TO CALLBACK DUE TO IT BEING SO BUSY. EXPLAINED THIS TO HIM AND ASKED HIM IF HE WOULD LIKE TO SPEAK WITH HIS GRANDMOTHERS RN. PT REFUSED AND INSISTED HE SPEAK WITH FRANKLIN, WHEN EXPLAINED THAT WOULD NOT BE AN OPTION AT THIS TIME, YANCI THREATENED ME AND CURSED AT ME OVER PHONE FROM WHICH I HUNG UP.
[2020-06-11] MEDS: ACCU-CHEK COMFORT CURVE STRIP VI SCH ×4 (01:18→19:39)
[2020-06-11] MEDS: LINEZOLID 600MG/300ML 300 ML IV SCH ×2 (01:20→14:05)
[2020-06-11] MEDS: MIDAZOLAM DRIP 50 mg/50mL 50 ML IV SCH ×6 (02:57→19:41)
[2020-06-11] MEDS: MEROPENEM 1GM IVPB 100 ML IV SCH ×3 (03:15→19:44)
[2020-06-11 04:20] LABS: Potassium 3.7 mmol/L (3.5-5.1)
[2020-06-11 04:27] LABS: Albumin 1.3 g/dL (3.4-5.0); BUN/Creatinine Ratio 52.9; Bilirubin, Total 0.3 mg/dL (0.2-1.0); Calcium 7.4 mg/dL (8.5-10.1); Magnesium 2.5 mg/dL (1.6-2.6); Phosphorus 2.4 mg/dL (2.5-4.90); Total Protein 5.2 g/dL (6.4-8.2)
[2020-06-11] MEDS: InsuLIN REG 1unit/0.01ml Soln (100units/ml) SC SCH ×4 (06:00→18:00)
[2020-06-11] MEDS: ALBUTEROL SULF 2.5 MG/0.5ML(0.5%) NEB SOLN NEB SCH ×3 (07:00→18:33)
[2020-06-11] MEDS: BUDESONIDE (INHALATION) 0.5 MG/2 ML NEB NEB SCH ×2 (07:00→18:33)
--- NOTE | 2020-06-11 08:00 | NUR ---
AM ASSESSMENT COMPLETED PT REMAINS INTUBATED AND SEDATED. UNABLE TO REPOSITION PT D/T LOW SPO2 WITH INCREASED ACTIVITY. PT DX WITH COVID PNA. CURRENTLY REQUIRING 100% FIO2, PT HAD A CHEST X-RAY YESTERDAY THAT SHOWED A RT SIDED PNEUMOMEDIASTINUM WHICH HAS RESOLVED. WITH IMPROVED SOFT TISSUE EMPHYSEMA AND PERSISTENT BILATERAL LOBE INFILTRATES. LS CTA AND DIMINISHED ON THE BASES, PT HAS SMALL TO MODERATE THICK CREAMY SECRETIONS SUCTIONED THROUGH ETT. SMALL CREAMY COLOR SECRETION SUCTION THROUGH MOUTH., SR NO ECTOPY AT THIS TIME, PT IS ON FENTANYL AND VERSED FOR SEDATION AND ON 7 MCG OF LEVOPHED FOR BP SUPPORT. PT HAS A MIDLINE ON LYNDA AND 3 PERIPHERAL IV'S THAT WERE STARTED ON ED. FC DRAINING DARK JANA URINE WITH SOME SEDIMENTS. PT'S SKIN IS INTACT PER REPORT RECEIVED, UNABLE TO REPOSITION PT AT THIS TIME.
[2020-06-11] MEDS: ASCORBIC ACID 1,000 MG TAB PO SCH (09:00)
[2020-06-11] MEDS: NOREPINEPHRINE 8 MG/250ML KIT 250 ML IV SCH ×2 (09:15→14:12)
[2020-06-11] MEDS: ENOXAPARIN SOD 40 MG/0.4 ML SYRINGE SC SCH (09:15)
[2020-06-11] MEDS: CHOLECALCIFEROL (VITD3) 2,000 UNIT CAP PO SCH (09:16)
[2020-06-11] MEDS: FAMOTIDINE 20 MG TAB PO SCH ×2 (09:17→22:00)
[2020-06-11] MEDS: ZINC SULFATE 220mg CAP or TAB PO SCH (09:18)
--- NOTE | 2020-06-11 10:10 | NUR ---
WOUND CARE NOTE: ADDED PATIENT TO SKIN INTEGRITY MONITORING D/T INTUBATION STATUS. PATIENT ADMITTED TO [facility] WITH DIAGNOSIS OF SEVERE SEPSIS, COVID 19. PATIENT ON [place]BORNE ISOLATION FOR COVID 19. SHE HAS CURRENT TERRANCE SCORE OF 12. PATIENT NOT NOTED TO HAVE ANY SKIN INTEGRITY ISSUES, PER BEDSIDE NURSE. SKIN/WOUND CARE PLAN IMPLEMENTED. RECOMMEND: FREQUENT TURN SCHEDULE Q 2 HOURS, PRN CONDITION PERMITS, WITH PRESSURE REDISTRIBUTION USING PILLOWS/WEDGES, BID/PRN APPLICATION WITH MOISTURE BARRIER CREAM, OPTIFOAM GENTLE SACRAL DRESSING TO UPPER MEDIAL SACRUM PREVENTATIVE; DIETARY CONSULT FOR INTUBATION STATUS; CONTINUED MONITORING BY WOUND CARE TEAM.
--- NOTE | 2020-06-11 12:39 | NUR ---
PICC line placement Patient significant other educated on need for PICC line placement. All risks and benefits explained and all questions and concerns addressed prior to procedure. Noted past medical history and allergies with no contraindications. INR and Plt counts within acceptable range. 5 fr PICC line inserted via LEFT BASILIC vein using [employer] US and Tip Location System. Sterile technique with maximum barrier precautions utilized. Blood return obtained from each of THE THREER lumens and each flushed easily with NS using proper technique. PICC secured with Stat-lock; biodisc and occlusive dressing applied. TIP LOCATION VERIFIED BY [employer]. PICC LINE OK TO USE. PRIMARY RN CLAUDIA NOTIFIED. *Baseline Arm Circumference 32CM INTERNAL 45 CM EXTERNAL 2 CM PICC lot # [id number]
--- NOTE | 2020-06-11 13:58 | NUR ---
Nutrition Followup Notes Wt: 74.0 kg Pt is currently on a Cardiac diet with no PO recorded yet per RN doc along with PN support @ 76 ml/hr providing 1132 kcals, 80 gm proteins and 812 NPCs. PN support meets 67-77% of est energy needs and 99-108% of est protein needs. Est Energy needs: 4070-3229 kcals (20-23 kcal/kgBW), Est Protein needs: 74-81 gms/day (1.0-1.1 gm/kgBW). Will continue to monitor and reassess prn. LABS: GLU 116 H ALB 1.3 L CA 7.4 L GI: Pt had 1 BM 06/07 per RN doc BS: No BS score. Refer to wound assessment report for further details PES: 1) Increased nutrient needs aeb pt is with no PO intake, scheduled to receive TPN r/t pt's poor appetite 2) Overweight aeb BMI of 28.7 kg/m2 r/t energy intake in excess of energy needs 3) Altered nutrition related lab values aeb hypernatremia, hypokalemia, elev RFT, hyperglycemia, hypoalbuminemia r/t current medical condition Comments: Will continue to monitor PO status, PN tolerance, skin status, pertinent labs and weight trends. Will f/u in 2-3 days Rec: 1) Advance PN support to meet > 75% of needs if PO continues to be low. 2) Continue assistance with meals. 3) Continue current plan of care
[2020-06-11] MEDS: ACETAMINOPHEN 650 MG RECT SUPP PR PRN (15:19)
--- NOTE | 2020-06-11 15:20 | NUR ---
TEMP 101.1 , PLACED ON COOLING BLANKET.
[2020-06-11] MEDS: ATRACURIUM BESYLATE 1,000 MG in D5W 5% 150 ML IV SCH (15:30)
[2020-06-11] MEDS: fentaNYL Drip 2500mCg/250mlNS 250 ML IV SCH (16:14)
--- NOTE | 2020-06-11 16:20 | NUR ---
THERMOREGULATION RE- ASSESSMENT TEMP. INCREASED TO 101.8 RECTAL. APPLIED MORE ICE PACKS TO PT'S ARM PITS, BILATERAL GROINS, BEHIND PT'S NECK.
--- NOTE | 2020-06-11 18:28 | NUR ---
TEMP 102.7, PLACED COOLING BLANKET UNDER HER. PT 'S SPO2 DROPPED TO 77% WHILE TURNING HER TO PLACE BLANKET UNDER HER. HER SKIN REMAINS INTACT. PT TAKES A WHILE TO RECOVER FROM LOW SPO2. TEMP ON COOLING BLANKET SET TO LOWEST SETTING AND PLACED ON MANUAL SETTING, PT HAS A RECTAL PROVE IN PLACE TO CONTINUOUSLY MONITOR TEMPERATURE. ICE PACKS PLACED ON BOTH ARM PITS, BEHIND NECK AND ON BOTH GROIN AREAS. PT NOW LAYING ON HER BACK WITH HOB AT 30 DEGREE ANGLE. PT NOW GETTING MORE TACHYCARDIC WITH COOLING BLANKET.
--- NOTE | 2020-06-11 18:45 | NUR ---
TEMP 102.2 HR COMING DOWN. PT REMAINS ON COOLING MEASURES. REPORT GIVEN TO CHARLIE BRO.
[2020-06-11] MEDS ORDERED: PPN PER PHARMACY IV NR ×10 (20:00)
[2020-06-11] MEDS: SODIUM CHLOR 0.9% PF (SALINE LOCK) 10ML VIAL/SYR IV SCH (22:00)
[2020-06-11] MEDS: ATORVASTATIN 20 MG TAB PO SCH (22:00)
--- NOTE | 2020-06-11 23:40 | NUR ---
TACHYCARDIA PATIENT HR ABOVE 120S AND SUSTAINING. PATIENT O2SAT MAINTAINING 92-95% WITH FI02 100% AND TOLERATING VENTILATOR. PATIENT CURRENT TEMP 97.9 AFEBRILE. PATIENT COMFORTABLY IN BED AND SEDATED FENTANYL 200MCG/HR AND VERSED 15MG/HR. Addendum: 06/11/20 at 2343 by ADALI RODARTE RN RN PAGED HOSPITALIST TO NOTIFY ABOUT PATIENT TACHYCARDIA.
[2020-06-12] VITALS (97 sets, daily range): BP systolic 89–147; BP diastolic 40–69
[2020-06-12] MEDS: LINEZOLID 600MG/300ML 300 ML IV SCH ×2 (01:00→13:00)
[2020-06-12] MEDS ORDERED: SODIUM CHLORIDE 0.9% 500 ML IV ONE (01:00)
--- NOTE | 2020-06-12 01:00 | NUR ---
TV NOTED TO RT THAT PATIENT MINUTE TIDAL VOLUME IS TRENDING DOWN. WILL EVALUATE PATIENT.
[2020-06-12] MEDS: MIDAZOLAM DRIP 50 mg/50mL 50 ML IV SCH ×2 (01:23→21:46)
[2020-06-12] MEDS: MEROPENEM 1GM IVPB 100 ML IV SCH ×3 (03:20→18:22)
[2020-06-12 03:30] LABS: Calcium 7.5 mg/dL (8.5-10.1); Potassium 3.8 mmol/L (3.5-5.1)
[2020-06-12 03:38] LABS: Albumin 1.3 g/dL (3.4-5.0); BUN/Creatinine Ratio 30.2; Bilirubin, Total 0.4 mg/dL (0.2-1.0); Magnesium 2.3 mg/dL (1.6-2.6); Phosphorus 3.5 mg/dL (2.5-4.90); Pre Albumin 5.7 mg/dL (20.0-40.0); Total Protein 5.3 g/dL (6.4-8.2)
[2020-06-12] MEDS: ACCU-CHEK COMFORT CURVE STRIP VI SCH ×5 (06:00→23:55)
[2020-06-12] MEDS: BUDESONIDE (INHALATION) 0.5 MG/2 ML NEB NEB SCH ×2 (06:25→22:34)
[2020-06-12] MEDS: InsuLIN REG 1unit/0.01ml Soln (100units/ml) SC SCH ×5 (06:59→23:54)
--- NOTE | 2020-06-12 07:14 | NUR ---
ABG WITH CRITICAL RESULTS. PAGE PLACED TO MD VOGEL. VENT RR INCREASED TO 28 BPM. ABG TO FOLLOW TO CONFIRM CHANGES.
--- NOTE | 2020-06-12 08:21 | NUR ---
FEBRILE PATIENT HAD FEVER T101.1 COOLING MEASURE INITIATED, COLD BATH, TYLENOL GIVEN.
--- NOTE | 2020-06-12 08:22 | NUR ---
SPOKE WITH A RT INFORMED HER PATIENT TRENDS IN TIDAL VOLUME AND PREVIOUS CHEST XRAY. RT AT BEDSIDE TO DO ABG THIS AM. RT SUGGESTED TO ORDER CHEST XRAY FOR POSSIBLE PNEUMOTHORAX. INFORMED TO AM NURSE
[2020-06-12] MEDS: fentaNYL Drip 2500mCg/250mlNS 250 ML IV SCH (09:15)
[2020-06-12] MEDS: FAMOTIDINE 20 MG TAB PO SCH ×2 (10:00→23:01)
[2020-06-12] MEDS: ENOXAPARIN SOD 40 MG/0.4 ML SYRINGE SC SCH (10:00)
[2020-06-12] MEDS: SODIUM CHLOR 0.9% PF (SALINE LOCK) 10ML VIAL/SYR IV SCH ×2 (10:00→23:00)
[2020-06-12] MEDS: ASCORBIC ACID 1,000 MG TAB PO SCH (10:00)
[2020-06-12] MEDS: ZINC SULFATE 220mg CAP or TAB PO SCH (10:00)
[2020-06-12] MEDS: CHOLECALCIFEROL (VITD3) 2,000 UNIT CAP PO SCH (10:00)
[2020-06-12] MEDS: ATRACURIUM BESYLATE 1,000 MG in D5W 5% 150 ML IV SCH (14:50)
[2020-06-12] MEDS ORDERED: FUROSEMIDE 40 MG/4 ML VIAL IV ONE (15:45)
[2020-06-12] MEDS ORDERED: Glucerna 1.2 Cal 1Liter BOTTLE GT SCH (16:15)
--- NOTE | 2020-06-12 19:15 | NUR ---
Shift Open Note Received shift report and assumed care of patient who is intubated and sedated with cooling blanket on and a temp of 101.4 patient has a Osullivan draining to gravity.
[2020-06-12] MEDS ORDERED: TPN PER PHARMACY IV NR ×11 (20:00)
--- NOTE | 2020-06-12 21:00 | NUR ---
Bakari Anna Patient current rectal temp is 95.5 Bakari Anna Applied Addendum: 06/13/20 at 2244 by BETHEL DIXON RN RN Charted on he wrong patient.
[2020-06-12] MEDS: POLYETHYLENE GLYCOL 17 GM PWDR PO SCH (22:00)
[2020-06-12] MEDS: ALBUTEROL SULF 2.5 MG/0.5ML(0.5%) NEB SOLN NEB SCH (22:34)
--- NOTE | 2020-06-12 22:34 | NUR ---
AT BEDSIDE IN FULL PPE DUE TO ISOLATION PRECAUTIONS. RECEIVED PT ON VENT #[id number], VENT CONNECTED TO RED OUTLET AND O2 SOURCE. ALARMS ARE SET AND AUDIBLE. AMBU BAG AND MASK. BS ARE FINE COURSE T/O SXD VIA ETT FOR SMALL THIN CREAMY BLISS SECRETIONS. MED NEB TX GIVEN INLINE WITHOUT ADVERSE REACTION NOTED. NO VENT CHANGES MADE AT THIS TIME. PTS CURRENT TEMP READS AT 99.1F. WILL CONTINUE TO MONITOR.
[2020-06-12] MEDS: ATORVASTATIN 20 MG TAB PO SCH (23:00)
--- NOTE | 2020-06-12 23:00 | NUR ---
Family Communication Received call from Patient Daughter requesting update, update provided, questions and concerns address family member verbalized understanding of information provided.
[2020-06-13] VITALS (100 sets, daily range): BP systolic 91–141; BP diastolic 34–58
--- NOTE | 2020-06-13 | NUR ---
Tube Feeding Tube feeding started rate of 20
[2020-06-13] MEDS: LINEZOLID 600MG/300ML 300 ML IV SCH ×2 (01:35→13:00)
--- NOTE | 2020-06-13 02:00 | NUR ---
Tube Feeding Residual 33 MLs infused residual 30MLs
[2020-06-13] MEDS: MEROPENEM 1GM IVPB 100 ML IV SCH ×3 (03:58→19:21)
--- NOTE | 2020-06-13 04:13 | NUR ---
AT BEDSIDE FOR ROUTINE VENT CHECK. VENT CHECK DONE FROM PTS ROOM DOOR DUE TO COVID ISOLATION. PTS CURRENT TEMP READS 97.9F. NO CHANGES MADE AT THIS TIME.
[2020-06-13] MEDS: ACCU-CHEK COMFORT CURVE STRIP VI SCH ×3 (06:54→17:29)
[2020-06-13] MEDS: InsuLIN REG 1unit/0.01ml Soln (100units/ml) SC SCH ×3 (06:55→17:29)
[2020-06-13] MEDS: BUDESONIDE (INHALATION) 0.5 MG/2 ML NEB NEB SCH ×2 (06:55→22:28)
[2020-06-13] MEDS: ALBUTEROL SULF 2.5 MG/0.5ML(0.5%) NEB SOLN NEB SCH ×3 (06:55→22:28)
[2020-06-13] MEDS: fentaNYL Drip 2500mCg/250mlNS 250 ML IV SCH (09:15)
--- NOTE | 2020-06-13 09:30 | NUR ---
Respiratory note: PAGE OUT TO FOR ABG CRITICAL VALUE
[2020-06-13] MEDS: ZINC SULFATE 220mg CAP or TAB PO SCH (10:00)
[2020-06-13] MEDS: ASCORBIC ACID 1,000 MG TAB PO SCH (10:00)
[2020-06-13] MEDS: ENOXAPARIN SOD 40 MG/0.4 ML SYRINGE SC SCH (10:00)
[2020-06-13] MEDS: FAMOTIDINE 20 MG TAB PO SCH ×2 (10:00→22:09)
[2020-06-13] MEDS: POLYETHYLENE GLYCOL 17 GM PWDR PO SCH (10:00)
[2020-06-13] MEDS: CHOLECALCIFEROL (VITD3) 2,000 UNIT CAP PO SCH (10:00)
[2020-06-13] MEDS: SODIUM CHLOR 0.9% PF (SALINE LOCK) 10ML VIAL/SYR IV SCH ×2 (10:00→22:08)
[2020-06-13] MEDS: NOREPINEPHRINE 8 MG/250ML KIT 250 ML IV SCH (11:53)
--- NOTE | 2020-06-13 12:28 | NUR ---
Nutrition Followup Notes Wt: 74.0 kg Pt is now intubated sedated. pt is currently NPO with EN support with Glucerna @ 20 ml.hr providing 576 kcals and 29 gm proteins Est Energy needs: 7830-6224 kcals (20-23 kcal/kgBW), Est Protein needs: 74-81 gms/day (1.0-1.1 gm/kgBW). Will continue to monitor and reassess prn. LABS: GLU 211 H TG 259 H ALB 1.3 L, PREALB 5.7 L CA 7.5L GI: Pt had 1 BM 06/07 per RN doc BS: BS 12 high risk. Refer to wound assessment report for further details PES: 1) Increased nutrient needs aeb pt is with no PO intake, scheduled to receive TPN r/t pt's poor appetite 2) Overweight aeb BMI of 28.7 kg/m2 r/t energy intake in excess of energy needs 3) Altered nutrition related lab values aeb hypernatremia, hypokalemia, elev RFT, hyperglycemia, hypoalbuminemia r/t current medical condition Comments: Will continue to monitor NPO status, EN tolerance, skin status, pertinent labs and weight trends. Will f/u in 2-3 days Rec: 1) Advance EN support with Glcuerna @ 55 ml/hr per MD approval to meet > 75% of needs 2) consider PN support if not able to tolerate EN 2) Continue assistance with meals. 3) Continue current plan of care Addendum: 06/13/20 at [address] Rec: consider prostat 1 packet bid as alb is low
[2020-06-13 13:37] LABS: Potassium 3.7 mmol/L (3.5-5.1)
[2020-06-13 13:58] LABS: Albumin 1.3 g/dL (3.4-5.0); BUN/Creatinine Ratio 38.7; Bilirubin, Total 0.3 mg/dL (0.2-1.0); Calcium 7.5 mg/dL (8.5-10.1); Total Protein 5.2 g/dL (6.4-8.2)
[2020-06-13] MEDS: FUROSEMIDE 40 MG/4 ML VIAL IV SCH (14:13)
[2020-06-13] MEDS: ATRACURIUM BESYLATE 1,000 MG in D5W 5% 150 ML IV SCH (14:14)
[2020-06-13] MEDS: MIDAZOLAM DRIP 50 mg/50mL 50 ML IV SCH (20:24)
[2020-06-14] VITALS (90 sets, daily range): BP systolic 89–159; BP diastolic 35–70
[2020-06-14] MEDS: ACCU-CHEK COMFORT CURVE STRIP VI SCH ×4 (00:27→18:24)
[2020-06-14] MEDS: MIDAZOLAM DRIP 50 mg/50mL 50 ML IV SCH ×3 (00:48→10:48)
[2020-06-14] MEDS: LINEZOLID 600MG/300ML 300 ML IV SCH ×2 (00:50→14:29)
[2020-06-14] MEDS: Jevity 1.2 Cal/Fiber 1 Liter GT SCH ×2 (01:25→20:00)
[2020-06-14] MEDS: MEROPENEM 1GM IVPB 100 ML IV SCH ×3 (03:24→19:04)
[2020-06-14] MEDS: InsuLIN REG 1unit/0.01ml Soln (100units/ml) SC SCH ×3 (06:00→18:00)
--- NOTE | 2020-06-14 07:30 | NUR ---
REPORT REPORT RECEIVED FROM BELEN RNBETHEL. PT IN ISOLATION FOR COVID. VIEWED PT THROUGH GLASS DOORS. PT INTUBATED AND SEDATED. PER REPORT, PT 'S O2 SAT RECOVERING FROM EARLIER REPOSITIONING AND SAT CURRENTLY 87%. CONTINUE TO MONITOR.
--- NOTE | 2020-06-14 08:15 | NUR ---
ASSESSMENT PT IN COVID ISOLATION. PT INTUBATED AND SEDATED. VENTILATOR SETTINGS OF : 8 FR ETT/20 AT THE LIP, PC RATE OF 28, PRESSURE OF 24, 100% FIO2 AND PEP OF 10. LUNGS CLEAR AND DIMINISHED THROUGHOUT. O2 SAT OF 87% , PER REPORT PT RECOVERING FROM DESATURATION WITH EARLIER REPOSITIONING. TELE ST 110'S. ON LEVOPHED FOR BP SUPPORT. FEET COOL TO THE TOUCH. ABD SOFT WITH HYPOACTIVE BOWEL SOUNDS. OGT WITH PLACEMENT VERIFIED AND RESIDUAL OF 10ML. JEVITY FEEDING INFUSING AT 30 ML/HR , GOAL RATE. LAST BM 06/07. GARIBAY CATHETER DRAINING YELLOW URINE WITH SEDIMENT. TURNED FOR COMFORT. SACRAL OPTIFOAM IN PLACE AND SKIN UNDER DRESSING IS CLEAR. EXHIBITS NO S/S OF PAIN. CONTINUE TO MONITOR.
[2020-06-14 08:25] LABS: Basophils # (auto) 0 10 ^3/uL (0-0.2); Basophils % (auto) 0.3 % (0.0-2.0); Eosinophils # (auto) 0.2 10 ^3/uL (0-0.8); Eosinophils % (auto) 1.4 % (0.0-7.0); Hematocrit 31.2 % (36.0-46.0); Hemoglobin 10.6 g/dL (12.2-16.2); Mean Corpuscular Hemoglobin 30.9 pg (28.0-32.0); Mean Corpuscular Hgb Conc. 33.9 g/dL (32.0-36.0); Mean Corpuscular Volume 91.3 fL (80.0-100.0); Monocytes # (auto) 0.4 10 ^3/uL (0-1.3); Monocytes % (auto) 3.2 % (0.0-12.0); Neutrophils # (auto) 10.6 10 ^3/uL (1.6-8.6); Neutrophils % (auto) 87.1 % (37.0-80.0); Nucleated Red Blood Cells % 0.2 %; Platelet Count (auto) 121 10^3/uL (140-450); Red Blood Cells 3.41 10^6/uL (4.0-5.20); Red Cell Distribution Width 13.2 % (11.8-14.3); White Blood Cell 12.2 10^3/uL (4.4-10.8)
[2020-06-14] MEDS: BUDESONIDE (INHALATION) 0.5 MG/2 ML NEB NEB SCH ×2 (08:39→22:25)
[2020-06-14] MEDS: ALBUTEROL SULF 2.5 MG/0.5ML(0.5%) NEB SOLN NEB SCH ×3 (08:39→22:25)
[2020-06-14 08:51] LABS: Albumin 1.4 g/dL (3.4-5.0); BUN/Creatinine Ratio 35.3; Bilirubin, Total 0.5 mg/dL (0.2-1.0); Potassium 3.4 mmol/L (3.5-5.1); Total Protein 5.3 g/dL (6.4-8.2)
[2020-06-14] MEDS: fentaNYL Drip 2500mCg/250mlNS 250 ML IV SCH (09:15)
[2020-06-14] MEDS: NOREPINEPHRINE 8 MG/250ML KIT 250 ML IV SCH (09:15)
[2020-06-14] MEDS: CHOLECALCIFEROL (VITD3) 2,000 UNIT CAP PO SCH (09:30)
[2020-06-14] MEDS: ENOXAPARIN SOD 40 MG/0.4 ML SYRINGE SC SCH (09:30)
[2020-06-14] MEDS: SODIUM CHLOR 0.9% PF (SALINE LOCK) 10ML VIAL/SYR IV SCH ×2 (09:30→21:50)
[2020-06-14] MEDS: FUROSEMIDE 40 MG/4 ML VIAL IV SCH (09:30)
[2020-06-14] MEDS: ZINC SULFATE 220mg CAP or TAB PO SCH (09:30)
[2020-06-14] MEDS: ASCORBIC ACID 1,000 MG TAB PO SCH (09:30)
[2020-06-14] MEDS: FAMOTIDINE 20 MG TAB PO SCH ×2 (09:30→21:50)
--- NOTE | 2020-06-14 12:10 | NUR ---
ACCUCHECK OF 111, NO COVERAGE NEEDED. UNABLE TO DOCUMENT NON ADMINISTRATION OF INSULIN ON EMAR IT WAS ALREADY DOCUMENTED ON BY PREVIOUS SHIFT.
--- NOTE | 2020-06-14 13:30 | NUR ---
PT WITH SOME URINE LEAKED FROM GARIBAY. PLACED ANOTHER 5ML NS IN BALLOON. PARTIAL LINEN CHANGE DONE. CONTINUE TO MONITOR. Addendum: 06/14/20 at 1919 by Tracee Cintron RN WRONG PATIENT
--- NOTE | 2020-06-14 14:00 | NUR ---
REPOSITIONED PT FOR COMFORT. PT INCONTINENT OF SMALL AMOUNT OF THICK LIQUID BROWN BM. MARYLOU CARE GIVEN AND PARTIAL LINEN CHANGE DONE. TOLERATED WELL BY PT.
--- NOTE | 2020-06-14 19:15 | NUR ---
REPORT REPORT GIVEN TO BELEN RNBETHEL. CALLED AND SPOKE WITH DR ABDI REGARDING K LEVEL OF 3.4 AND ORDER RECEIVED FOR EFFERVESCENT POTASSIUM 50mEQ VIA NGT X1.
[2020-06-14] MEDS ORDERED: POTASSIUM EFFERVESENT TAB 25 MEQ GT ONE (19:45)
[2020-06-15] VITALS (98 sets, daily range): BP systolic 91–125; BP diastolic 42–56
[2020-06-15] MEDS: ACCU-CHEK COMFORT CURVE STRIP VI SCH ×4 (00:14→18:00)
[2020-06-15] MEDS: LINEZOLID 600MG/300ML 300 ML IV SCH ×2 (00:20→14:31)
[2020-06-15] MEDS: fentaNYL Drip 2500mCg/250mlNS 250 ML IV SCH ×2 (02:47→23:30)
[2020-06-15] MEDS: MEROPENEM 1GM IVPB 100 ML IV SCH ×3 (04:15→18:50)
[2020-06-15 04:48] LABS: Basophils # (auto) 0 10 ^3/uL (0-0.2); Basophils % (auto) 0.3 % (0.0-2.0); Eosinophils # (auto) 0.2 10 ^3/uL (0-0.8); Eosinophils % (auto) 1.5 % (0.0-7.0); Hematocrit 29.6 % (36.0-46.0); Hemoglobin 10.1 g/dL (12.2-16.2); Lymphocytes # (auto) 0.8 10 ^3/uL (0.4-5.4); Lymphocytes % (auto) 7.1 % (10.0-50.0); Mean Corpuscular Hemoglobin 31.4 pg (28.0-32.0); Mean Corpuscular Volume 92.4 fL (80.0-100.0); Monocytes # (auto) 0.3 10 ^3/uL (0-1.3); Monocytes % (auto) 2.5 % (0.0-12.0); Neutrophils # (auto) 10.1 10 ^3/uL (1.6-8.6); Neutrophils % (auto) 88.6 % (37.0-80.0); Nucleated Red Blood Cells % 0.1 %; Platelet Count (auto) 108 10^3/uL (140-450); Red Cell Distribution Width 13.5 % (11.8-14.3); White Blood Cell 11.5 10^3/uL (4.4-10.8)
[2020-06-15 05:08] LABS: Albumin 1.4 g/dL (3.4-5.0); Calcium 7.9 mg/dL (8.5-10.1)
[2020-06-15 05:13] LABS: BUN/Creatinine Ratio 35.3; Bilirubin, Total 0.3 mg/dL (0.2-1.0); Total Protein 5.5 g/dL (6.4-8.2)
[2020-06-15] MEDS: MIDAZOLAM DRIP 50 mg/50mL 50 ML IV SCH ×4 (05:19→20:45)
[2020-06-15] MEDS: InsuLIN REG 1unit/0.01ml Soln (100units/ml) SC SCH ×4 (05:32→18:00)
[2020-06-15] MEDS: ALBUTEROL SULF 2.5 MG/0.5ML(0.5%) NEB SOLN NEB SCH ×3 (06:00→21:44)
--- NOTE | 2020-06-15 08:30 | NUR ---
ASSESSMENT PT IN COVID ISOLATION. PT INTUBATED AND SEDATED. VENTILATOR SETTINGS OF: 8 FR ETT/21 AT THE LIP, PRESSURE CONTROL MODE, RTE OF 28, PRESSURE OF 24, 90% FIO2 AND PEEP OF 10. LUNGS CLEAR AND WITH THICK CREAMY SECRETIONS WITH ETT SUCTIONING. O2 SAT OF 893%. WITH TURN TO THE RIGHT SIDE, PT O2 SAT DOWN TO 82%. INCREASED OFIO2 TO 100% AND RETURNED PT TO HER BACK. SATS SLOWLY RETURNED TO 90%. WILL MAKE RT AND DR VOGEL AWARE. TELE ST 108. ABD SOFT WITH HYPOACTIVE BOWEL SOUNDS NOTED. OGT WITH + PLACEMENT AND NO RESIDUAL NOTED. JEVITY FEEDING AT 50 ML/HR. GARIBAY CATHETER DRAINING CLEAR YELLOW URINE. PT ON LOW DOSE LEVOPHED AND VERSED AND FENTANYL FOR SEDATION. CONTINUE TO MONITOR.
--- NOTE | 2020-06-15 09:00 | NUR ---
SEDATION VACATION UNABLE TO DO A SEDATION VACATION DUE TO PT'S UNSTABLE CONDITION AND HIGH O2 DEMANDS. Addendum: 06/15/20 at 1553 by Tracee Cintron RN Amended: Links added.
[2020-06-15] MEDS: NOREPINEPHRINE 8 MG/250ML KIT 250 ML IV SCH ×2 (09:15→21:00)
[2020-06-15] MEDS: BUDESONIDE (INHALATION) 0.5 MG/2 ML NEB NEB SCH ×2 (10:00→21:44)
[2020-06-15] MEDS: FUROSEMIDE 40 MG/4 ML VIAL IV SCH (10:00)
[2020-06-15] MEDS: ZINC SULFATE 220mg CAP or TAB PO SCH (10:10)
[2020-06-15] MEDS: SODIUM CHLOR 0.9% PF (SALINE LOCK) 10ML VIAL/SYR IV SCH ×2 (10:10→21:28)
[2020-06-15] MEDS: ASCORBIC ACID 1,000 MG TAB PO SCH (10:11)
[2020-06-15] MEDS: CHOLECALCIFEROL (VITD3) 2,000 UNIT CAP PO SCH (10:11)
[2020-06-15] MEDS: FAMOTIDINE 20 MG TAB PO SCH ×2 (10:11→21:43)
[2020-06-15] MEDS: ENOXAPARIN SOD 40 MG/0.4 ML SYRINGE SC SCH (10:12)
--- NOTE | 2020-06-15 11:00 | NUR ---
PT SEEN BY DR VOGEL.
--- NOTE | 2020-06-15 11:00 | NUR ---
RESPIRATORY PT LAYING IN BED WITH NO STIMULATION . PT O2 SAT DOWN TO 82%. INTO ROOM AND SUCTIOED FOR SMALL AMOUNT OF THICK CREAMY FLUID FROM THE ETT.
--- NOTE | 2020-06-15 11:07 | NUR ---
O2 SATS DOWN TO 75% AND SKYLER, RT, TO THE BEDSIDE AND INCREASED PRESSURE TO 28 AND PEEP OF 12.
--- NOTE | 2020-06-15 11:10 | NUR ---
Respiratory note: VENT CHANGES MADE PER INCREASE IP 28 AND PEEP TO +12
--- NOTE | 2020-06-15 11:15 | NUR ---
PULLED PT UP IN BED FOR CHEST XRAY AND O2 SAT UP TO 91%. CXR TAKEN.
--- NOTE | 2020-06-15 11:55 | NUR ---
O2 SAT OF 95%>
--- NOTE | 2020-06-15 15:11 | NUR ---
Nutrition Followup Notes Wt: 74.0 kg Pt is now intubated sedated. pt is currently NPO with EN support with Jevity @ 30 ml.hr providing 846 kcals and 43 gm proteins Est Energy needs: 4430-7374 kcals (20-23 kcal/kgBW), Est Protein needs: 74-81 gms/day (1.0-1.1 gm/kgBW). Will continue to monitor and reassess prn. LABS: GLU 128 H ALB 1.4 L, BLAIRE/LT 172/127 H CA 7.9 L, CO 2 44H GI: Pt had 1 BM 06/14 per RN doc BS: BS 15 mod risk. Refer to wound assessment report for further details PES: 1) Increased nutrient needs aeb pt is with no PO intake, scheduled to receive TPN r/t pt's poor appetite 2) Overweight aeb BMI of 28.7 kg/m2 r/t energy intake in excess of energy needs 3) Altered nutrition related lab values aeb hypernatremia, hypokalemia, elev RFT, hyperglycemia, hypoalbuminemia r/t current medical condition Comments: Will continue to monitor NPO status, EN tolerance, skin status, pertinent labs and weight trends. Will f/u in 2-3 days Rec: 1) Consider EN support with Glcuerna @ 55 ml/hr per MD approval to meet > 75% of needs. 2) consider PN support if not able to tolerate EN. 2) Continue assistance with meals. 3) Continue current plan of care. 4) consider prostat 1 packet bid as alb is low
--- NOTE | 2020-06-15 16:30 | NUR ---
VSS AND TOLERATING SMALL TURNS.
--- NOTE | 2020-06-15 19:10 | NUR ---
REPORT RECEIVED REPORT FROM NURSE BEACH TO RESUME CARE OF PATIENT
--- NOTE | 2020-06-15 19:26 | NUR ---
REPORT REPORT GIVEN TO BELEN RNADALI.
--- NOTE | 2020-06-15 22:30 | NUR ---
HYPOTENSION PATIENT BP 99/47, RESTARTED PATIENT LEVOPHED GTT @ 1MCG/MIN. PATIENT CURRENT BP AFTER INITIATING LEVOPHED GTT IS 105/48 HR 117. PATIENT TOLERATING WELL WILL CONTINUE TO MONITOR PATIENT. Addendum: 06/15/20 at 2328 by ADALI RODARTE RN RN PATIENT HYPOTENSIVE 91/47 INCREASED PATIENT LEVOPHED GTT TO 2MCG/MIN. WILL CONTINUE TO MONITOR PATIENT.
--- NOTE | 2020-06-15 23:11 | NUR ---
UPDATED FAMILY DAUGHTER CALLED, PASSWORD VERIFIED. UPDATED PATIENT STATUS, PLAN OF CARE, AND PATIENT PROGRESS.
[2020-06-16] VITALS (101 sets, daily range): BP systolic 91–162; BP diastolic 40–69
[2020-06-16] MEDS: ACCU-CHEK COMFORT CURVE STRIP VI SCH ×4 (00:18→17:42)
[2020-06-16] MEDS: MIDAZOLAM DRIP 50 mg/50mL 50 ML IV SCH ×4 (00:19→21:34)
[2020-06-16] MEDS: LINEZOLID 600MG/300ML 300 ML IV SCH ×2 (01:00→12:38)
[2020-06-16] MEDS: MEROPENEM 1GM IVPB 100 ML IV SCH ×3 (03:15→19:00)
[2020-06-16 03:48] LABS: Basophils # (auto) 0 10 ^3/uL (0-0.2); Basophils % (auto) 0.5 % (0.0-2.0); Eosinophils # (auto) 0.5 10 ^3/uL (0-0.8); Eosinophils % (auto) 4.7 % (0.0-7.0); Hematocrit 26.9 % (36.0-46.0); Hemoglobin 9.1 g/dL (12.2-16.2); Lymphocytes # (auto) 1.2 10 ^3/uL (0.4-5.4); Lymphocytes % (auto) 12.7 % (10.0-50.0); Mean Corpuscular Hemoglobin 31.7 pg (28.0-32.0); Mean Corpuscular Hgb Conc. 33.9 g/dL (32.0-36.0); Mean Corpuscular Volume 93.4 fL (80.0-100.0); Monocytes # (auto) 0.4 10 ^3/uL (0-1.3); Monocytes % (auto) 4.2 % (0.0-12.0); Neutrophils # (auto) 7.6 10 ^3/uL (1.6-8.6); Neutrophils % (auto) 77.9 % (37.0-80.0); Nucleated Red Blood Cells % 0.1 %; Platelet Count (auto) 118 10^3/uL (140-450); Red Blood Cells 2.88 10^6/uL (4.0-5.20); Red Cell Distribution Width 13.7 % (11.8-14.3); White Blood Cell 9.8 10^3/uL (4.4-10.8)
[2020-06-16 04:09] LABS: Potassium 4.1 mmol/L (3.5-5.1)
[2020-06-16 04:15] LABS: BUN/Creatinine Ratio 40.7; Calcium 7.9 mg/dL (8.5-10.1)
[2020-06-16] MEDS: InsuLIN REG 1unit/0.01ml Soln (100units/ml) SC SCH ×4 (06:00→17:41)
[2020-06-16] MEDS: BUDESONIDE (INHALATION) 0.5 MG/2 ML NEB NEB SCH ×2 (06:25→22:00)
[2020-06-16] MEDS: ALBUTEROL SULF 2.5 MG/0.5ML(0.5%) NEB SOLN NEB SCH ×3 (06:25→22:00)
--- NOTE | 2020-06-16 07:00 | NUR ---
Assumed care of pt., report received per CHARLIE Ta. No distress noted, pt. intubated, vented, and attached to monitor and reading sinus tachycardia 1 teens, will cont. to monitor for any changes, assessment ongoing.
[2020-06-16] MEDS: SODIUM CHLOR 0.9% PF (SALINE LOCK) 10ML VIAL/SYR IV SCH ×2 (10:08→22:00)
[2020-06-16] MEDS: FUROSEMIDE 40 MG/4 ML VIAL IV SCH (10:08)
[2020-06-16] MEDS: FAMOTIDINE 20 MG TAB PO SCH ×2 (10:09→22:00)
[2020-06-16] MEDS: ZINC SULFATE 220mg CAP or TAB PO SCH (10:09)
[2020-06-16] MEDS: ASCORBIC ACID 1,000 MG TAB PO SCH (10:09)
[2020-06-16] MEDS: ENOXAPARIN SOD 40 MG/0.4 ML SYRINGE SC SCH (10:10)
[2020-06-16] MEDS: CHOLECALCIFEROL (VITD3) 2,000 UNIT CAP PO SCH (10:10)
--- NOTE | 2020-06-16 19:05 | NUR ---
No distress noted, pt. SBAR report given to CHARLIE Ta. Care of pt. assumed per NOC RN, day shift RN relinquished care and signed off.
[2020-06-16] MEDS: fentaNYL Drip 2500mCg/250mlNS 250 ML IV SCH (21:30)
[2020-06-17] VITALS (99 sets, daily range): BP systolic 97–170; BP diastolic 38–65
[2020-06-17] MEDS: InsuLIN REG 1unit/0.01ml Soln (100units/ml) SC SCH
[2020-06-17] MEDS: ACCU-CHEK COMFORT CURVE STRIP VI SCH
--- NOTE | 2020-06-17 00:08 | NUR ---
UPDATED FAMILY DAUGHTER SASHA, PASSWORD VERIFIED. UPDATED DAUGHTER ON PATIENT STATUS, PLAN OF CARE, RECENT TREATMENTS.
[2020-06-17] MEDS: LINEZOLID 600MG/300ML 300 ML IV SCH ×2 (00:28→12:54)
[2020-06-17] MEDS: MEROPENEM 1GM IVPB 100 ML IV SCH ×3 (02:42→19:03)
[2020-06-17 03:58] LABS: Hematocrit 28.1 % (36.0-46.0); Hemoglobin 9.2 g/dL (12.2-16.2); Mean Corpuscular Hemoglobin 31.4 pg (28.0-32.0); Mean Corpuscular Hgb Conc. 32.9 g/dL (32.0-36.0); Mean Corpuscular Volume 95.5 fL (80.0-100.0); Platelet Count (auto) 130 10^3/uL (140-450); Red Blood Cells 2.94 10^6/uL (4.0-5.20); White Blood Cell 8.9 10^3/uL (4.4-10.8)
[2020-06-17 04:17] LABS: Basophils % (manual) 0 (0.0-2.0); Blast Cells 0; Metamyelocytes % 0; Myelocytes % 0; Promyelocytes % 0; Reactive Lymphocytes 0
[2020-06-17 04:20] LABS: Calcium 8.1 mg/dL (8.5-10.1); Potassium 3.9 mmol/L (3.5-5.1)
[2020-06-17 04:23] LABS: BUN/Creatinine Ratio 35.5
[2020-06-17] MEDS: MIDAZOLAM DRIP 50 mg/50mL 50 ML IV SCH ×6 (04:40→20:21)
--- NOTE | 2020-06-17 04:46 | NUR ---
O2SAT 80S MORNING CARE DONE ON PATIENT, PATIENT HOB ABOVE 30DEGREES, PATIENT O2SAT 81-84% THEN SUSTAINING 81%. SUCTIONED PATIENT NO SECRETIONS NOTED. NO ORAL SECRETIONS NOTED EITHER. OGT TO SUCTION NO DRAINAGE NOTED. PAGED RT TO EVALUATE PATIENT. VENT SETTINGS CAN NOT BE CHANGED AND FIO2 100%. WILL CONTINUE TO MONITOR PATIENT.
[2020-06-17] MEDS: Jevity 1.2 Cal/Fiber 1 Liter GT SCH (05:00)
[2020-06-17 06:47] LABS: Band Neutrophils % (manual) 3; Eosinophils % (manual) 6 (0-7); Lymphocytes % (manual) 11 (10.0-50.0); Monocytes % (manual) 7 (0-12)
[2020-06-17] MEDS: ALBUTEROL SULF 2.5 MG/0.5ML(0.5%) NEB SOLN NEB SCH ×3 (07:04→22:25)
[2020-06-17] MEDS: BUDESONIDE (INHALATION) 0.5 MG/2 ML NEB NEB SCH ×2 (07:04→22:25)
--- NOTE | 2020-06-17 07:10 | NUR ---
Assumed care of pt., report received per CHARLIE Ta. No distress noted, pt. intubated, vented, and attached to monitor and reading sinus rhythm 90's, will cont. to monitor for any changes, assessment ongoing.
[2020-06-17] MEDS: NOREPINEPHRINE 8 MG/250ML KIT 250 ML IV SCH (09:07)
[2020-06-17] MEDS: SODIUM CHLOR 0.9% PF (SALINE LOCK) 10ML VIAL/SYR IV SCH ×2 (09:53→20:21)
[2020-06-17] MEDS: FUROSEMIDE 40 MG/4 ML VIAL IV SCH (09:53)
[2020-06-17] MEDS: ZINC SULFATE 220mg CAP or TAB PO SCH (09:53)
[2020-06-17] MEDS: FAMOTIDINE 20 MG TAB PO SCH ×2 (09:53→22:10)
[2020-06-17] MEDS: ENOXAPARIN SOD 40 MG/0.4 ML SYRINGE SC SCH (09:53)
[2020-06-17] MEDS: ASCORBIC ACID 1,000 MG TAB PO SCH (09:54)
[2020-06-17] MEDS: CHOLECALCIFEROL (VITD3) 2,000 UNIT CAP PO SCH (09:54)
--- NOTE | 2020-06-17 13:14 | NUR ---
Nutrition Followup Notes Wt: 74.0 kg Pt is now intubated sedated. pt is currently NPO with EN support with Jevity @ 30 ml.hr providing 846 kcals and 43 gm proteins Est Energy needs: 6518-8688 kcals (20-23 kcal/kgBW), Est Protein needs: 74-81 gms/day (1.0-1.1 gm/kgBW). Will continue to monitor and reassess prn. LABS: CO2 48 H CA 8.1 L GI: Pt had 1 BM 06/16 per RN doc BS: BS 15 mod risk. Refer to wound assessment report for further details PES: 1) Increased nutrient needs aeb pt is with no PO intake, scheduled to receive TPN r/t pt's poor appetite 2) Overweight aeb BMI of 28.7 kg/m2 r/t energy intake in excess of energy needs 3) Altered nutrition related lab values aeb hypernatremia, hypokalemia, elev RFT, hyperglycemia, hypoalbuminemia r/t current medical condition Comments: Will continue to monitor NPO status, EN tolerance, skin status, pertinent labs and weight trends. Will f/u in 2-3 days Rec: 1) Consider EN support with Glcuerna @ 55 ml/hr per MD approval to meet > 75% of needs. 2) consider PN support if not able to tolerate EN. 2) Continue assistance with meals. 3) Continue current plan of care. 4) consider prostat 1 packet bid as alb is low
[2020-06-17] MEDS: fentaNYL Drip 2500mCg/250mlNS 250 ML IV SCH (13:37)
--- NOTE | 2020-06-17 19:02 | NUR ---
No distress noted, pt. SBAR report given to CHARLIE Ta. Care of pt. assumed per NOC RN, day shift RN relinquished care and signed off.
[2020-06-18] VITALS (69 sets, daily range): BP systolic 100–157; BP diastolic 43–61
[2020-06-18] MEDS ORDERED: ATROPINE SULFATE 1 MG/1 ML VIAL ONE (01:20)
[2020-06-18] MEDS: MIDAZOLAM DRIP 50 mg/50mL 50 ML IV SCH ×4 (04:02→19:03)
[2020-06-18] MEDS: ALBUTEROL SULF 2.5 MG/0.5ML(0.5%) NEB SOLN NEB SCH ×2 (06:00→20:41)
--- NOTE | 2020-06-18 07:10 | NUR ---
Assumed care of pt., report received per CHARLIE Ta. No distress noted, pt. intubated, vented, and attached to monitor reading sinus rhythm 90's, will cont.to monitor for any changes, assessment ongoing.
[2020-06-18] MEDS: NOREPINEPHRINE 8 MG/250ML KIT 250 ML IV SCH (09:02)
[2020-06-18] MEDS: BUDESONIDE (INHALATION) 0.5 MG/2 ML NEB NEB SCH ×2 (10:00→20:41)
[2020-06-18] MEDS: SODIUM CHLOR 0.9% PF (SALINE LOCK) 10ML VIAL/SYR IV SCH ×2 (10:14→22:00)
[2020-06-18] MEDS: FAMOTIDINE 20 MG TAB PO SCH ×2 (10:15→22:00)
[2020-06-18] MEDS: ZINC SULFATE 220mg CAP or TAB PO SCH (10:15)
[2020-06-18] MEDS: ENOXAPARIN SOD 40 MG/0.4 ML SYRINGE SC SCH (10:15)
[2020-06-18] MEDS: ASCORBIC ACID 1,000 MG TAB PO SCH (10:15)
[2020-06-18] MEDS: CHOLECALCIFEROL (VITD3) 2,000 UNIT CAP PO SCH (10:19)
--- NOTE | 2020-06-18 11:30 | NUR ---
WOUND CARE NOTE: PATIENT BEING MONITORED FOR SKIN INTEGRITY D/T INTUBATION STATUS. PATIENT CONTINUES TO BE INTUBATED, SEDATED. SHE HAS CURRENT TERRANCE SCORE OF 15. PATIENT IS WOUND FREE, PER BEDSIDE NURSE JULIUS. UPDATED SKIN/WOUND CARE PLAN. RECOMMEND: CONTINUATION WITH ALL WOUND CARE ORDERS PREVIOUSLY PRESCRIBED BY MD. WOUND CARE TEAM WILL CONTINUE TO MONITOR.
--- NOTE | 2020-06-18 19:37 | NUR ---
No distress noted, pt. SBAR report given to CHARLIE Garza. Care of pt. assumed per NOC RN, day shift RN relinquished care and signed off.
[2020-06-19] VITALS (63 sets, daily range): BP systolic 89–189; BP diastolic 41–67
[2020-06-19] MEDS: MIDAZOLAM DRIP 50 mg/50mL 50 ML IV SCH (01:40)
[2020-06-19] MEDS: ALBUTEROL SULF 2.5 MG/0.5ML(0.5%) NEB SOLN NEB SCH ×2 (07:00→19:40)
[2020-06-19] MEDS ORDERED: hydrALAZINE HCL 20 MG/ML VL IV PRN (07:45)
[2020-06-19] MEDS: ASCORBIC ACID 1,000 MG TAB PO SCH (10:00)
[2020-06-19] MEDS: SODIUM CHLOR 0.9% PF (SALINE LOCK) 10ML VIAL/SYR IV SCH ×2 (10:00→22:00)
[2020-06-19] MEDS: ZINC SULFATE 220mg CAP or TAB PO SCH (10:00)
[2020-06-19] MEDS: ENOXAPARIN SOD 40 MG/0.4 ML SYRINGE SC SCH (10:00)
[2020-06-19] MEDS: FAMOTIDINE 20 MG TAB PO SCH ×2 (10:00→22:00)
[2020-06-19] MEDS: CHOLECALCIFEROL (VITD3) 2,000 UNIT CAP PO SCH (10:00)
--- NOTE | 2020-06-19 10:15 | NUR ---
Pt saturations 81%, RT paged and at bedside.
--- NOTE | 2020-06-19 10:28 | NUR ---
Nutrition Followup Notes Wt: 74.0 kg Pt is now intubated sedated. pt is currently NPO with EN support with Jevity @ 30 ml.hr providing 846 kcals and 43 gm proteins Est Energy needs: 5040-3237 kcals (20-23 kcal/kgBW), Est Protein needs: 74-81 gms/day (1.0-1.1 gm/kgBW). Will continue to monitor and reassess prn. LABS: no new labs today 06/17: CO2 48 H CA 8.1 L GI: Pt had 1 BM 06/16 per RN doc BS: BS 15 mod risk. Refer to wound assessment report for further details PES: 1) Increased nutrient needs aeb pt is with no PO intake, scheduled to receive TPN r/t pt's poor appetite 2) Overweight aeb BMI of 28.7 kg/m2 r/t energy intake in excess of energy needs 3) Altered nutrition related lab values aeb hypernatremia, hypokalemia, elev RFT, hyperglycemia, hypoalbuminemia r/t current medical condition Comments: Will continue to monitor NPO status, EN tolerance, skin status, pertinent labs and weight trends. Will f/u in 2-3 days Rec: 1) Consider EN support with Glcuerna @ 55 ml/hr per MD approval to meet > 75% of needs. 2) consider PN support if not able to tolerate EN. 2) Continue assistance with meals. 3) Continue current plan of care. 4) consider prostat 1 packet bid as alb is low
[2020-06-19 10:43] LABS: Basophils # (auto) 0 10 ^3/uL (0-0.2); Basophils % (auto) 0.1 % (0.0-2.0); Eosinophils # (auto) 0.2 10 ^3/uL (0-0.8); Hematocrit 30.2 % (36.0-46.0); Hemoglobin 10.2 g/dL (12.2-16.2); Lymphocytes # (auto) 0.4 10 ^3/uL (0.4-5.4); Lymphocytes % (auto) 2.3 % (10.0-50.0); Mean Corpuscular Hemoglobin 32.2 pg (28.0-32.0); Mean Corpuscular Hgb Conc. 33.9 g/dL (32.0-36.0); Monocytes # (auto) 1.1 10 ^3/uL (0-1.3); Monocytes % (auto) 6.7 % (0.0-12.0); Neutrophils # (auto) 15.2 10 ^3/uL (1.6-8.6); Neutrophils % (auto) 89.9 % (37.0-80.0); Nucleated Red Blood Cells % 0.4 %; Platelet Count (auto) 254 10^3/uL (140-450); Red Blood Cells 3.18 10^6/uL (4.0-5.20); Red Cell Distribution Width 13.9 % (11.8-14.3); White Blood Cell 16.9 10^3/uL (4.4-10.8)
--- NOTE | 2020-06-19 10:57 | NUR ---
MD Lazcano at bedside. new orders received.
[2020-06-19] MEDS: BUDESONIDE (INHALATION) 0.5 MG/2 ML NEB NEB SCH ×2 (11:45→19:40)
[2020-06-19 13:39] LABS: BUN/Creatinine Ratio 44.4; Calcium 8.1 mg/dL (8.5-10.1); Potassium 4.2 mmol/L (3.5-5.1)
[2020-06-19] MEDS ORDERED: PROPOFOL 100 ML IV ONE (13:41)
[2020-06-19] MEDS ORDERED: PROPOFOL 100 ML IV SCH (13:45)
--- NOTE | 2020-06-19 14:19 | NUR ---
Pageadeola Lazcano regarding pt's saturations still at 80%. Propofol added for more sedation, since pt is breathing over vent.
[2020-06-19] MEDS: cefTRIAXone 1GM/50ML D5W 50 ML IV SCH (14:30)
[2020-06-19] MEDS ORDERED: FUROSEMIDE 40 MG/4 ML VIAL IV ONE (14:30)
--- NOTE | 2020-06-19 14:41 | NUR ---
MD Lazcano aware of critical lab results. Increase TF as tolerates to 60/hr.
[2020-06-19] MEDS: fentaNYL Drip 2500mCg/250mlNS 250 ML IV SCH (14:47)
[2020-06-19] MEDS: PROPOFOL 100 ML IV SCH (15:00)
[2020-06-19 18:25] LABS: Urine Bacteria FEW /hpf (None Seen); Urine Blood 1+ /uL (Negative); Urine Budding Yeast MANY /hpf (None Seen); Urine Specific Gravity 1.017 (1.001-1.035); Urine WBC 12 /hpf (0 - 5)
[2020-06-20] VITALS (54 sets, daily range): BP systolic 67–150; BP diastolic 34–62
[2020-06-20] MEDS ORDERED: ACETAMINOPHEN 650 mg PER 20.3 mL UD GT PRN (03:30)
--- NOTE | 2020-06-20 03:49 | NUR ---
Pt's sat at start of shift were 77%. Now O2 sat are 55-61%. Hospitalist notified. No new orders. Will continue to monitor.
--- NOTE | 2020-06-20 03:52 | NUR ---
TEMP: Pt's temp 101.5 rectally. Pt medicated w/ Tylenol 650mg via OGT as per order. To continue to monitor pt.
[2020-06-20] MEDS: NOREPINEPHRINE 8 MG/250ML KIT 250 ML IV SCH ×2 (07:00→09:15)
[2020-06-20] MEDS: ALBUTEROL SULF 2.5 MG/0.5ML(0.5%) NEB SOLN NEB SCH ×2 (07:00→14:05)
[2020-06-20] MEDS: BUDESONIDE (INHALATION) 0.5 MG/2 ML NEB NEB SCH (07:00)
--- NOTE | 2020-06-20 07:24 | NUR ---
Started Levophed Drip. Blood pressure dropping and O2 sat has been 67-77 this shift. Currently O2 sat 54-60%. called to see if he wanted to come be with pt. He stated he would call his son and come. Levo has been titrated up multiple times with no result. Will continue to monitor.
--- NOTE | 2020-06-20 08:00 | NUR ---
Report given to am shift. Called due to low O2 sat and decreased bp. came and is at doorside. Care endorsed.
--- NOTE | 2020-06-20 08:30 | NUR ---
SPOUSE AT BEDSIDE WITH SON, UPDATED ON PATIENTS CURRENT CONDITION. SPOUSE WANTS TO KEEP PATIENT A FULL CODE AT THIS TIME.
[2020-06-20] MEDS: cefTRIAXone 1GM/50ML D5W 50 ML IV SCH (08:51)
[2020-06-20] MEDS: fentaNYL Drip 2500mCg/250mlNS 250 ML IV SCH (09:15)
[2020-06-20] MEDS: SODIUM CHLOR 0.9% PF (SALINE LOCK) 10ML VIAL/SYR IV SCH (09:57)
[2020-06-20] MEDS ORDERED: FUROSEMIDE 40 MG/4 ML VIAL IV SCH (10:00)
--- NOTE | 2020-06-20 10:00 | NUR ---
UNABLE TO REPOSITION PATIENT AT THIS TIME DUE TO PATIENT BEING UNSTABLE AT THIS TIME.
[2020-06-20] MEDS: ZINC SULFATE 220mg CAP or TAB PO SCH (10:24)
[2020-06-20] MEDS: CHOLECALCIFEROL (VITD3) 2,000 UNIT CAP PO SCH (10:24)
[2020-06-20] MEDS: ASCORBIC ACID 1,000 MG TAB PO SCH (10:24)
[2020-06-20] MEDS: ENOXAPARIN SOD 40 MG/0.4 ML SYRINGE SC SCH (10:24)
[2020-06-20] MEDS: FAMOTIDINE 20 MG TAB PO SCH (10:24)
[2020-06-20] MEDS: PROPOFOL 100 ML IV SCH (14:30)
[2020-06-20] MEDS ORDERED: EPINEPHrine HCL 250 ML IV SCH (15:30)
[2020-06-20] MEDS ORDERED: SODIUM BICARBONATE 8.4% INJ 50ML SYRINGE IV ONE (15:41)
[2020-06-20] MEDS ORDERED: EPINEPHrine HCL 1 MG/10 ML SYRG IV ONE (15:41)
--- NOTE | 2020-06-20 15:42 | NUR ---
PATIENT AT 1452, FAMILY M DERRELL AWARE. SON FRANCHESKA AND SPOUSE GAIL AWARE.
--- NOTE | 2020-06-20 16:07 | NUR ---
CALL OUT TO [facility], [facility] WILL NOT PURSUE BODY DONATION DUE TO PATIENT BEING COVID POSITIVE. RELEASE # [id number].
--- NOTE | 2020-06-20 19:08 | NUR ---
SANDI MCCALL PICKED UP BODY. DEBRA PRITCHARD CALLED REGARDING PATIENTS BELONGINGS. DEBRA PRITCHARD STATES THAT HE WILL BE PICKING UP HER BELONGINGS SOMETIME TONIGHT.
== END 2020-06-20 15:42 | DRG 870 ==
LOC: ER 18:12 → TELE 22:43 → DOU IN ICU 06-10 21:52
PROVIDERS: ADMIT Nurse Practitioner; ATTEND Internal Medicine Nephrology
PROC: 5A09557 Assistance with Respiratory Ventilation, Greater than 96 Consecutive Hours, Continuous Positive Airway Pressure (ICD-10-PCS; 2020-05-26)
PROC: XW033E5 Introduction of Remdesivir Anti-infective into Peripheral Vein, Percutaneous Approach, New Technology Group 5 (ICD-10-PCS; 2020-05-27)
PROC: 05HC33Z Insertion of Infusion Device into Left Basilic Vein, Percutaneous Approach (ICD-10-PCS; 2020-05-28)
PROC: XW13325 Transfusion of Convalescent Plasma (Nonautologous) into Peripheral Vein, Percutaneous Approach, New Technology Group 5 (ICD-10-PCS; principal; 2020-06-02)
PROC: 3E0336Z Introduction of Nutritional Substance into Peripheral Vein, Percutaneous Approach (ICD-10-PCS; 2020-06-06)
PROC: 5A1955Z Respiratory Ventilation, Greater than 96 Consecutive Hours (ICD-10-PCS; 2020-06-10)
PROC: 0BH17EZ Insertion of Endotracheal Airway into Trachea, Via Natural or Artificial Opening (ICD-10-PCS; 2020-06-10)
PROC: 02HV33Z Insertion of Infusion Device into Superior Vena Cava, Percutaneous Approach (ICD-10-PCS; 2020-06-11)
PROC: B548ZZA Ultrasonography of Superior Vena Cava, Guidance (ICD-10-PCS; 2020-06-11)
DX: A41.89 Other specified sepsis (principal); U07.1 COVID-19; J12.89 Other viral pneumonia; J96.01 Acute respiratory failure with hypoxia; I21.A1 Myocardial infarction type 2; R65.21 Severe sepsis with septic shock; E87.1 Hypo-osmolality and hyponatremia; E44.0 Moderate protein-calorie malnutrition; J93.9 Pneumothorax, unspecified; N12 Tubulo-interstitial nephritis, not specified as acute or chronic; E87.4 Mixed disorder of acid-base balance; R73.9 Hyperglycemia, unspecified; E88.09 Other disorders of plasma-protein metabolism, not elsewhere classified; E66.3 Overweight; Z68.28 Body mass index [BMI] 28.0-28.9, adult; E87.6 Hypokalemia; E87.8 Other disorders of electrolyte and fluid balance, not elsewhere classified
CPT/HCPCS: 36415; 36569; 36600; 71045; 76705; 80048; 80053; 81001; 82040; 82728; 82805; 82962; 83036; 83605; 83615; 83735; 83880; 84100; 84295; 84439; 84443; 84478; 84484; 85007; 85025; 85027; 85379; 85610; 85730; 86141; 86850; 86900; 86901; 87040; 87086; 87088; 87426; 93005; 93306; 93970; 94002; 94003; 94640; 94660; 96365; 96375; G0378; J0330; J0461; J0696; J1100; J1815; J1956; J2001; J2185; J2250; J2405; J2704; J3480; J3490; J7060; J7131